=== PATIENT | female | born 1970 | race Caucasian/White ===

== ENCOUNTER 2017-07-19 16:59 | Inpatient (IN) | payer OTHER ==
[2017-07-19 17:56] VITALS: BMI 23.8
--- NOTE | 2017-07-19 20:31 | HP ---
COWS - Scale Resting Pulse: 1= [place] 81-100 Sweatin= No chills or Flushing Restless Observation: 3= Extraneous Movement Pupil Size: 0= Normal to Room Light Bone or Joint Aches: 1= Mild Discomfort Runny Nose/ Eye Tearin= Constantly Teary/Runny GI Upset > 30mins: 0= None Tremor Observation: 1= Tremor [place], Not Seen Yawning Observation: 1= 1-2x During Session Anxiety or Irritability: 2=Irritable/Anxious Goose Flesh Skin: 0=Smooth Skin COWS Score: 13 Admission ROS S - HPI Chief Complaint: heroin withdrawal symptoms Allergies/Adverse Reactions: Allergies Allergy/AdvReac Type Severity Reaction Status Date / Time Penicillins Allergy Severe Hives Verified 01/30/15 18:23 Sulfa (Sulfonamide Allergy Severe Swelling Verified 01/30/15 18:23 Antibiotics) History of Present Illness: 47 yo female with hx heroin, nicotine and cocaine dependence is here seeking detox. Patient currently smokes 1/3 pack of cigarettes per day. 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 Denies suicidal / homicidal ideation or suicide attempts. Last detox [facility] January 2015. Longest period of sobriety 1 year. Denies hx of seizures, blackout or overdose. Exam Limitations: No Limitations - Ebola screening Have you traveled outside of the country in the last 21 days: No Have you had contact with anyone from an Ebola affected area: No Have you been sick,other than usual withdrawal symptoms: No Do you have a fever: No - Review of Systems Constitutional: Unintentional Wgt. Loss (10 lbs in the past year) EENT: reports: No Symptoms Reported, Nose Congestion, Other (pain in nose and tounge since using cocaine) Respiratory: reports: See HPI, Cough (non-productive x 1 week), Wheezing Cardiac: reports: No Symptoms Reported GI: reports: Poor Fluid Intake : reports: No Symptoms Reported Musculoskeletal: reports: No Symptoms Reported Integumentary: reports: No Symptoms Reported Neuro: reports: No Symptoms reported Endocrine: reports: Increased Thirst, Other (hot flashes) Hematology: reports: No Symptoms Reported Psychiatric: reports: Orientated x3, Anxious Other Systems: Reviewed and Negative Patient History - Patient Medical History Hx Anemia: No Hx Asthma: No Hx Chronic Obstructive Pulmonary Disease (COPD): No Hx Cancer: No Hx Cardiac Disorders: No Hx Congestive Heart Failure: No Hx Hypertension: No Hx Hypercholesterolemia: No Hx Pacemaker: No HX Cerebrovascular Accident: No Hx Seizures: No Hx Dementia: No Hx Diabetes: No Hx Gastrointestinal Disorders: No Hx Liver Disease: No Hx Genitourinary Disorders: No Hx Sexually Transmitted Disorders: No Hx Renal Disease (ESRD): No Hx Thyroid Disease: No Hx Human Immunodeficiency Virus (HIV): No (last tested 5 years ago ) Hx Hepatitis C: No Hx Depression: No Hx Suicide Attempt: No Hx Bipolar Disorder: No Hx Schizophrenia: No - Patient Surgical History Past Surgical History: No Hx Neurologic Surgery: No Hx Cataract Extraction: No Hx Cardiac Surgery: No Hx Lung Surgery: No Hx Breast Surgery: No Hx Breast Biopsy: No Hx Abdominal Surgery: No Hx Appendectomy: No Hx Cholecystectomy: No Hx Genitourinary Surgery: No Hx Section: No Hx Orthopedic Surgery: No Anesthesia Reaction: No - PPD History Previous Implant?: Yes Documented Results: Negative w/o proof PPD to be Administered?: No - Reproductive History Patient is a Female of Child Bearing Age (11 -55 yrs old): No Last Menstrual Period: 07/14/17 Patient : No - Smoking Cessation Smoking history: Current every day smoker Have you smoked in the past 12 months: Yes Aproximately how many cigarettes per day: 10 Cigars Per Day: 0 Hx Chewing Tobacco Use: No Initiated information on smoking cessation: Yes 'Breaking Loose' booklet given: 07/19/17 - Substance & Tx. History Hx Alcohol Use: No Hx Substance Use: Yes Substance Use Type: Cocaine, Heroin Hx Substance Use Treatment: Yes ([facility] 2014) - Substances Abused Heroin Route: Inhalation Frequency: Daily Amount used: 5 bags Age of first use: 45 Date of Last Use: 07/19/17 Cocaine Route: Inhalation Frequency: Daily Amount used: 2 grams Age of first use: 40 Date of Last Use: 07/19/17 Family Disease History - Family Disease History Family Disease History: [place]: Mother ( FROM [place] OF [place]), Other: Grandparent (ETOH DEPENDENT), Father (STOPPED USING HEROIN SEVERAL YRS. AGO) Admission Physical Exam BHS - Vital Signs Vital Signs: Vital Signs - 24 hr 07/19/17 17:48 Temperature 98.2 F Pulse Rate 95 H Respiratory 18 Rate Blood Pressure 150/90 - Physical General Appearance: Yes: Disheveled, Thin, Irritable, Anxious HEENTM: Yes: EOMI, Hearing grossly Normal, Normal ENT Inspection, Normocephalic , Normal Voice, Pharynx Normal, Tm's normal, Other (dry mucous membranes) Respiratory: Yes: Chest Non-Tender, Normal Breath Sounds, No Respiratory Distress, No Accessory Muscle Use, Wheezing Neck: Yes: No masses,lesions,Nodules, Trachea in good position Breast: Yes: Breast Exam Deferred Cardiology: Yes: Regular Rhythm, Regular Rate, S1, S2 Abdominal: Yes: Normal Bowel Sounds, Non Tender, Flat, Soft Genitourinary: Yes: Within Normal Limits Back: Yes: Normal Inspection Musculoskeletal: Yes: full range of Motion, Gait Steady, Pelvis Stable Extremities: Yes: Normal Capillary Refill, Normal Inspection, Normal Range of Motion, Non-Tender Neurological: Yes: flexographic press set up operator II-XII NML intact, Fully Oriented, Alert, Motor Strength 5/5, Depressed Affect Integumentary: Yes: Normal Color, Dry, Warm, Other (poor skin turgor) Lymphatic: Yes: Within Normal Limits - Diagnostic (1) Opioid dependence with withdrawal Current Visit: Yes Status: Acute (2) Weight loss Current Visit: Yes Status: Acute (3) Depressed affect Current Visit: Yes Status: Acute (4) Dehydration Current Visit: Yes Status: Acute (5) Wheezing Current Visit: Yes Status: Acute (6) Cough Current Visit: Yes Status: Acute (7) Cocaine dependence Current Visit: Yes Status: Chronic Qualifiers: Substance use status: uncomplicated Qualified Code(s): F14.20 - Cocaine dependence, uncomplicated Cleared for Admission [facility] - Detox or Rehab [facility] Level of Care: Medically Managed Detox Regimen/Protocol: Methadone [facility] Breath Alcohol Content Breath Alcohol Content: 0 Urine Pregancy Test - Result Urine Test Results: Negative- NO Line Present Urine Drug Screen - Results Drug Screen Negative: No Urine Drug Screen Results: ISMAEL-Cocaine, OPI-Opiates
[2017-07-19] MEDS ORDERED: MAGNESIUM HYDROX 2400MG/30ML ORAL SUSPENSION 30 ML CUP PO PRN (20:38)
[2017-07-19] MEDS ORDERED: P-EPHED 60MG/TRIPROLIDI 2.5MG TABLET PO PRN (20:38)
[2017-07-19] MEDS ORDERED: guaiFENesin/D-METHORPHAN HB 10 ML UNIT-DOSE CUPS PO PRN (20:38)
[2017-07-19] MEDS ORDERED: LOPERAMIDE HCL 2 MG CAPSULE PO PRN (20:38)
[2017-07-19] MEDS ORDERED: IBUPROFEN 400 MG TABLET (FP) PO PRN (20:38)
[2017-07-19] MEDS ORDERED: MAG HYDROX/AL HYDROX/SIMETH 30 ML UNIT-DOSE CUP PO PRN (20:38)
[2017-07-19] MEDS ORDERED: MENTHOL/PHENOL 1 EACH UD MM PRN (20:38)
[2017-07-19] MEDS ORDERED: MAGNESIUM CITRATE 300 ML BOTTLE PO PRN (20:38)
[2017-07-19] MEDS ORDERED: ACETAMINOPHEN 325 MG TABLET (FP) PO PRN (20:38)
[2017-07-19] MEDS ORDERED: ALBUTEROL SO4 2.5/IPRATROPIUM 0.5 INH SOL 3 ML VIAL.NEB. NEB PRN (20:43)
[2017-07-19] MEDS ORDERED: METHADONE HCL 10 MG TABLET (FOR DETOX USE ONLY) PO ONE ×2 (22:00→23:00)
[2017-07-19] MEDS: diazePAM 5 MG TABLET PO PRN (23:06)
[2017-07-19] MEDS: THIAMINE HCL 100 MG TABLET (FP) PO SCH (23:09)
--- NOTE | 2017-07-20 09:29 | PN ---
[facility]HS COWS - Scale Resting Pulse: 1= [place] 81-100 Sweatin= Chills/Flushing Restless Observation: 3= Extraneous Movement Pupil Size: 1= Pupils >than Normal Bone or Joint Aches: 2= Severe Diffuse Aches Runny Nose/ Eye Tearin= Runny Nose/Eyes GI Upset > 30mins: 3= Vomiting/Diarrhea Tremor Observation of Outstretched Hands: 2= Slight Tremor Visible Yawning Observation: 1= 1-2x During Session Anxiety or Irritability: 2=Irritable/Anxious Goose Flesh Skin: 0=Smooth Skin COWS Score: 18 BHS Progress Note (SOAP) Subjective: ALERT,IRRITABLE,ANXIOUS,INTERRUPTED SLEEP,TREMOR,PAIN IN THE BODY AND BACK Objective: 07/20/17 09:25 Vital Signs Temperature 98.2 F 07/20/17 06:00 Pulse Rate 85 07/20/17 06:00 Respiratory Rate 18 07/20/17 06:30 Blood Pressure 129/79 07/20/17 06:00 O2 Sat by Pulse Oximetry (%) EKG NSR 97/MIN NO CHEST PAIN,NO SOB,NO DIZZINESS LABS PENDING Assessment: 07/20/17 09:28 WITHDRAWAL SYMPTOM Plan: CONTINUE CONTINUE DETOX
[2017-07-20] MEDS ORDERED: METHADONE HCL 10 MG TABLET (FOR DETOX USE ONLY) PO ONE (10:00)
[2017-07-20 10:15] LABS: HEMATOCRIT 40.1 % (32.4-45.2); HEMOGLOBIN 13.3 GM/dL (10.7-15.3); MCHC 33.1 g/dl (32.0-36.0); MEAN CELL VOLUME 87.6 fl (80-96); MEAN PLT VOLUME 8.7 fl (7.5-11.1); PLATELET COUNT 290 K/MM3 (134-434); RBC 4.57 M/mm3 (3.60-5.2); RDW 14.8 % (11.6-15.6); WHITE BLOOD COUNT 6.4 K/mm3 (4.0-10.0)
[2017-07-20 10:27] LABS: CHLORIDE 108 mmol/L (98-107); POTASSIUM 4.4 mmol/L (3.5-5.1); SODIUM 143 mmol/L (136-145)
[2017-07-20 10:36] LABS: ALBUMIN 3.1 g/dl (3.4-5.0); ALK PHOS 67 U/L (45-117); ANION GAP 8 (8-16); BILIRUBIN,TOTAL 0.3 mg/dL (0.2-1.0); BLOOD UREA NITROGEN 9 mg/dL (7-18); CALCIUM 8.1 mg/dL (8.5-10.1); CO2 27 mmol/L (21-32); CREATININE 0.7 mg/dL (0.55-1.02); GLUCOSE,RANDOM 77 mg/dL (74-106); SGOT/AST 10 U/L (15-37); SGPT/ALT 10 U/L (12-78); TOT PROT 6.3 g/dl (6.4-8.2)
--- NOTE | 2017-07-20 11:02 | CONSULT ---
[facility] Psychiatric Consult - Data Date of interview: 07/20/17 Admission source: [facility] Identifying data: This isn 47 years old single female, homeless, unemployed, with no history of psychiatric hospitalizations, looking for detoxification from Opioids, Cocaine and Nicotine. This is second [facility] admission, with last detox [facility] January 2015. Longest period of sobriety 1 year. Substance Abuse History: Smoking Cessation. Smoking history: Current every day smoker. Patient currently smokes 1/3 pack of cigarettes per day. 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 Cigars Per Day: 0. Hx Chewing Tobacco Use: No. Initiated information on smoking cessation: Yes. ' Breaking Loose' booklet given: 07/19/17. - Substance & Tx. History. Hx Alcohol Use: No. Hx Substance Use: Yes. Substance Use Type: Cocaine, Heroin. Hx Substance Use Treatment: Yes ([facility] 2014). - Substances Abused. Heroin. Route: Inhalation. Frequency: Daily. Amount used: 5 bags. Age of first use: 45. Date of Last Use: 07/19/17. Cocaine. Route: Inhalation. Frequency: Daily. Amount used: 2 grams. Age of first use: 40. Date of Last Use: 07/19/17 Medical History: Weight loss history Psychiatric History: Patient reports history of depression and anxiety, reports no psychiatric hospitalization history, no psychiatric medications taking prior to admission Physical/Sexual Abuse/Trauma History: Denies, unclear Additional Comment: Observation. Detox Unit Care Protocol Mental Status Exam - Mental Status Exam Alert and Oriented to: Person Cognitive Function: Fair Patient Appearance: Unkempt Mood: Sad Affect: Flat Patient Behavior: Sedated Speech Pattern: Delayed Voice Loudness: Moderately Soft/Quiet Thought Process: Circumstantial Thought Disorder: Being Controlled Hallucinations: Denies Suicidal Ideation: Denies Homicidal Ideation: Denies Insight/Judgement: Fair Sleep: Difficulty falling asleep Appetite: Weight loss Muscle strength/Tone: Mild Hypotonicity Gait/Station: Shuffling Additional Comments: Observation. Detox Unit Care Protocol Psychiatric Findings - Problem List ([place] 1, 2,3) (1) Nicotine dependence Current Visit: Yes Status: Acute (2) Drug-induced mood disorder Current Visit: Yes Status: Acute (3) Opioid dependence with withdrawal Current Visit: Yes Status: Acute (4) Weight loss Current Visit: Yes Status: Acute (5) Cocaine dependence Current Visit: Yes Status: Chronic Qualifiers: Substance use status: uncomplicated Qualified Code(s): F14.20 - Cocaine dependence, uncomplicated (6) Cannabis dependence Current Visit: No Status: Chronic - Initial Treatment Plan Initial Treatment Plan: Observation. Detox Unit Care Protocol
[2017-07-20] MEDS: PRENATAL VITAMINS W/ FOLIC ACID TABLET (FP) PO SCH (11:08)
[2017-07-20] MEDS: diazePAM 5 MG TABLET PO PRN ×2 (11:08→22:11)
[2017-07-20] MEDS: NICOTINE 14 MG/24 HOURS TOPICAL PATCH TD SCH (11:08)
--- NOTE | 2017-07-20 14:51 | EKG ---
Test Reason : Blood Pressure : / mmHG Vent. Rate : 087 BPM Atrial Rate : 087 BPM P-R Int : 170 ms QRS Dur : 100 ms QT Int : 388 ms P-R-T Axes : 064 003 042 degrees QTc Int : 466 ms NORMAL SINUS RHYTHM POSSIBLE LEFT ATRIAL ENLARGEMENT BORDERLINE ECG NO PREVIOUS ECGS AVAILABLE Confirmed by JOSE D WALKER MD ([id number]) on 07/20/2017 2:51:11 PM Referred By: Confirmed By:JOSE D WALKER MD
[2017-07-20] MEDS: THIAMINE HCL 100 MG TABLET (FP) PO SCH (22:10)
[2017-07-20] MEDS: hydrOXYzine PAMOATE 50 MG CAPSULE (FP) PO PRN (22:11)
[2017-07-21] MEDS: diazePAM 5 MG TABLET PO PRN ×2 (05:50→22:26)
[2017-07-21] MEDS ORDERED: AZITHROMYCIN 250 MG TABLET PO ONE (09:15)
--- NOTE | 2017-07-21 09:17 | PN ---
S COWS - Scale Resting Pulse: 1= [place] 81-100 Sweatin= Chills/Flushing Restless Observation: 3= Extraneous Movement Pupil Size: 1= Pupils >than Normal Bone or Joint Aches: 2= Severe Diffuse Aches Runny Nose/ Eye Tearin= Nasal Congestion GI Upset > 30mins: 2= Nausea/Diarrhea Tremor Observation of Outstretched Hands: 2= Slight Tremor Visible Yawning Observation: 1= 1-2x During Session Anxiety or Irritability: 2=Irritable/Anxious Goose Flesh Skin: 0=Smooth Skin COWS Score: 16 BHS Progress Note (SOAP) Subjective: ALERT,IRRITABLE,ANXIOUS,INTERRUPTED SLEEP,COUGHING WITH YELLOWISH MUCOUS, EXPIRATORY WHEEZING Objective: 07/21/17 09:14 Vital Signs Temperature 97.7 F 07/21/17 06:00 Pulse Rate 88 07/21/17 06:00 Respiratory Rate 18 07/21/17 06:30 Blood Pressure 130/67 07/21/17 06:00 O2 Sat by Pulse Oximetry (%) Laboratory Last Values WBC 6.4 K/mm3 (4.0-10.0) D 07/20/17 08:00 RBC 4.57 M/mm3 (3.60-5.2) 07/20/17 08:00 Hgb 13.3 GM/dL (10.7-15.3) 07/20/17 08:00 Hct 40.1 % (32.4-45.2) 07/20/17 08:00 MCV 87.6 fl (80-96) 07/20/17 08:00 MCH 29.0 pg (25.7-33.7) 07/20/17 08:00 MCHC 33.1 g/dl (32.0-36.0) 07/20/17 08:00 RDW 14.8 % (11.6-15.6) 07/20/17 08:00 Plt Count 290 K/MM3 (134-434) 07/20/17 08:00 MPV 8.7 fl (7.5-11.1) 07/20/17 08:00 Sodium 143 mmol/L (136-145) 07/20/17 08:00 Potassium 4.4 mmol/L (3.5-5.1) 07/20/17 08:00 Chloride 108 mmol/L (98-107) H 07/20/17 08:00 Carbon Dioxide 27 mmol/L (21-32) 07/20/17 08:00 Anion Gap 8 (8-16) 07/20/17 08:00 BUN 9 mg/dL (7-18) 07/20/17 08:00 Creatinine 0.7 mg/dL (0.55-1.02) 07/20/17 08:00 Creat Clearance w eGFR > 60 (>60) 07/20/17 08:00 Random Glucose 77 mg/dL (74-106) 07/20/17 08:00 Calcium 8.1 mg/dL (8.5-10.1) L 07/20/17 08:00 Total Bilirubin 0.3 mg/dL (0.2-1.0) 07/20/17 08:00 AST 10 U/L (15-37) L 07/20/17 08:00 ALT 10 U/L (12-78) L 07/20/17 08:00 Alkaline Phosphatase 67 U/L (45-117) 07/20/17 08:00 Total Protein 6.3 g/dl (6.4-8.2) L 07/20/17 08:00 Albumin 3.1 g/dl (3.4-5.0) L 07/20/17 08:00 RPR Titer Nonreactive (NONREACTIVE) 07/20/17 08:00 Hep C Ab Diagnostic 0.1 s/co ratio (0.0-0.9) 07/20/17 08:00 HIV 1&2 Antibody Screen Negative 07/20/17 08:00 HIV P24 Antigen Negative 07/20/17 08:00 Assessment: 07/21/17 09:15 WITHDRAWAL SYMPTOM ACUTE EXACERBATION OF ASTHMA Plan: CONTINUE DETOX,START ON ZITHROMAX,PREDNISONE TAPER OFF,ALBUTEROL INHALER, ALBUTEROL NEBULIZER
[2017-07-21] MEDS ORDERED: predniSONE 20 MG TABLET (UD) PO ONE (10:00)
[2017-07-21] MEDS ORDERED: METHADONE HCL 5 MG TABLET (FOR DETOX USE ONLY) PO ONE (10:00)
[2017-07-21] MEDS: PRENATAL VITAMINS W/ FOLIC ACID TABLET (FP) PO SCH (10:08)
[2017-07-21] MEDS: NICOTINE 14 MG/24 HOURS TOPICAL PATCH TD SCH (10:09)
[2017-07-21] MEDS: THIAMINE HCL 100 MG TABLET (FP) PO SCH (22:26)
--- NOTE | 2017-07-21 22:41 | PN ---
[facility] Progress Note Note: Patient was found on the floor by school of nursing director Raudel Mercado. Patient reports she was not feeling wells she was feeling shaky and lay herself down on the floor. Patient reports that the only way she can recieve attention is by being on the floor. Patient was assisted off the floor, in no apparent distress, alert and oriented x 3. Continue to monitor
[2017-07-22] MEDS ORDERED: predniSONE 10 MG TABLET (UD) PO ONE (10:00)
[2017-07-22] MEDS ORDERED: METHADONE HCL 5 MG TABLET (FOR DETOX USE ONLY) PO ONE (10:00)
--- NOTE | 2017-07-22 10:33 | PN ---
S Progress Note (SOAP) Subjective: ALERT,IRRITABLE,ANXIOUS,INTERRUPTED SLEEP Objective: 07/22/17 10:33 Vital Signs Temperature 97.2 F L 07/22/17 09:47 Pulse Rate 87 07/22/17 09:47 Respiratory Rate 18 07/22/17 09:47 Blood Pressure 135/90 07/22/17 09:47 O2 Sat by Pulse Oximetry (%) Assessment: 07/22/17 10:33 WITHDRAWAL SYMPTOM Plan: CONTINUE DETOX
[2017-07-22] MEDS ORDERED: ONDANSETRON *ODT* 4 MG TABLET SL PRN (11:22)
--- NOTE | 2017-07-22 11:24 | PN ---
B[facility] Progress Note Note: NAUSEA,VOMITING,TO GIVE ZOFRAN 4 MGS SL Q 6 HRS PRN,CLOSE MONITORING
[2017-07-22] MEDS: PRENATAL VITAMINS W/ FOLIC ACID TABLET (FP) PO SCH (12:07)
[2017-07-22] MEDS: AZITHROMYCIN 250 MG TABLET PO SCH (12:07)
[2017-07-22] MEDS: NICOTINE 14 MG/24 HOURS TOPICAL PATCH TD SCH (13:01)
[2017-07-22] MEDS: THIAMINE HCL 100 MG TABLET (FP) PO SCH (23:06)
[2017-07-23] MEDS: hydrOXYzine PAMOATE 50 MG CAPSULE (FP) PO PRN (00:58)
[2017-07-23] MEDS ORDERED: METHADONE HCL 10 MG TABLET (FOR DETOX USE ONLY) PO ONE (10:00)
[2017-07-23] MEDS ORDERED: predniSONE 20 MG TABLET (UD) PO ONE (10:00)
[2017-07-23] MEDS: NICOTINE 14 MG/24 HOURS TOPICAL PATCH TD SCH (11:10)
[2017-07-23] MEDS: AZITHROMYCIN 250 MG TABLET PO SCH (11:10)
[2017-07-23] MEDS: PRENATAL VITAMINS W/ FOLIC ACID TABLET (FP) PO SCH (11:10)
--- NOTE | 2017-07-23 14:15 | PN ---
S Progress Note (SOAP) Subjective: alert oriented x 3 steady gait tolerates food and fluid well less gi distress no sweat no tremor calm Objective: 07/23/17 14:14 Vital Signs Temperature 98.2 F 07/23/17 14:11 Pulse Rate 102 H 07/23/17 14:11 Respiratory Rate 20 07/23/17 14:11 Blood Pressure 117/76 07/23/17 14:11 O2 Sat by Pulse Oximetry (%) Laboratory Last Values WBC 6.4 K/mm3 (4.0-10.0) D 07/20/17 08:00 RBC 4.57 M/mm3 (3.60-5.2) 07/20/17 08:00 Hgb 13.3 GM/dL (10.7-15.3) 07/20/17 08:00 Hct 40.1 % (32.4-45.2) 07/20/17 08:00 MCV 87.6 fl (80-96) 07/20/17 08:00 MCH 29.0 pg (25.7-33.7) 07/20/17 08:00 MCHC 33.1 g/dl (32.0-36.0) 07/20/17 08:00 RDW 14.8 % (11.6-15.6) 07/20/17 08:00 Plt Count 290 K/MM3 (134-434) 07/20/17 08:00 MPV 8.7 fl (7.5-11.1) 07/20/17 08:00 Sodium 143 mmol/L (136-145) 07/20/17 08:00 Potassium 4.4 mmol/L (3.5-5.1) 07/20/17 08:00 Chloride 108 mmol/L (98-107) H 07/20/17 08:00 Carbon Dioxide 27 mmol/L (21-32) 07/20/17 08:00 Anion Gap 8 (8-16) 07/20/17 08:00 BUN 9 mg/dL (7-18) 07/20/17 08:00 Creatinine 0.7 mg/dL (0.55-1.02) 07/20/17 08:00 Creat Clearance w eGFR > 60 (>60) 07/20/17 08:00 Random Glucose 77 mg/dL (74-106) 07/20/17 08:00 Calcium 8.1 mg/dL (8.5-10.1) L 07/20/17 08:00 Total Bilirubin 0.3 mg/dL (0.2-1.0) 07/20/17 08:00 AST 10 U/L (15-37) L 07/20/17 08:00 ALT 10 U/L (12-78) L 07/20/17 08:00 Alkaline Phosphatase 67 U/L (45-117) 07/20/17 08:00 Total Protein 6.3 g/dl (6.4-8.2) L 07/20/17 08:00 Albumin 3.1 g/dl (3.4-5.0) L 07/20/17 08:00 RPR Titer Nonreactive (NONREACTIVE) 07/20/17 08:00 Hep C Ab Diagnostic 0.1 s/co ratio (0.0-0.9) 07/20/17 08:00 HIV 1&2 Antibody Screen Negative 07/20/17 08:00 HIV P24 Antigen Negative 07/20/17 08:00 lab noted Assessment: 07/23/17 14:15 mild withdrawal sx Plan: medically supervised detox
[2017-07-23] MEDS: THIAMINE HCL 100 MG TABLET (FP) PO SCH (22:08)
[2017-07-24] MEDS ORDERED: METHADONE HCL 5 MG TABLET (FOR DETOX USE ONLY) PO ONE (06:00)
[2017-07-24 06:56] VITALS: BP 121/78; PULSE 67; TEMP 97.7
--- NOTE | 2017-07-24 08:59 | PN ---
S Progress Note (SOAP) Subjective: ALERT,NO COMPLAINT Objective: 07/24/17 08:58 Vital Signs Temperature 97.7 F 07/24/17 06:56 Pulse Rate 67 07/24/17 06:56 Respiratory Rate 19 07/24/17 06:56 Blood Pressure 121/78 07/24/17 06:56 O2 Sat by Pulse Oximetry (%) Assessment: 07/24/17 08:58 DETOX COMPLETED,NO WITHDRAWAL SYMPTOM Plan: DISCHARGE TODAY,FOLLOW UP WITH AFTER CARE PROGRAM ARRANGEMENT
--- NOTE | 2017-07-24 09:03 | DS ---
[facility] Detox Discharge Summary Admission Date: 07/19/17 Discharge Date: 07/24/17 - History Present History: Opioid Dependence, Sedative Dependence Additional Comments: FOLLOW UP WITH AFTER [facility] PROGRAM ARRANGEMENT, Pertinent Past History: ASTHMA WEIGHT LOSS - Physical Exam Results Vital Signs: Vital Signs Temperature 97.7 F 07/24/17 06:56 Pulse Rate 67 07/24/17 06:56 Respiratory Rate 07/24/17 06:56 Blood Pressure 121/78 07/24/17 06:56 O2 Sat by Pulse Oximetry (%) Pertinent Admission Physical Exam Findings: WITHDRAWAL SIGNS AND SYMPTOM - Treatment Hospital Course: Detox Protocol Followed, Detoxed Safely, Responded well, Discharged Condition Good, Rehab Referral Accepted Patient has Accepted a Rehab Referral to: [facility] - Medication Discharge Medications: Ambulatory Orders NK [No Known Home Medication] 01/30/15 - Diagnosis (1) Opioid dependence with withdrawal Current Visit: Yes Status: Acute (2) Weight loss Current Visit: Yes Status: Acute (3) Cocaine dependence Current Visit: Yes Status: Chronic Qualifiers: Substance use status: uncomplicated Qualified Code(s): F14.20 - Cocaine dependence, uncomplicated (4) Asthma Current Visit: Yes Status: Acute (5) Acute bronchitis Current Visit: Yes Status: Acute - AMA Did Patient Leave Against Medical Advice: No
--- NOTE | 2017-07-24 09:07 | PN ---
S Progress Note Note: PATIENT DECLINED TO GO TO REVELATION DUE TO PERSONAL PROBLEM,FOLLOW UP WITH AFTER CARE PROGRAM ARRANGEMENT
[2017-07-24] MEDS: AZITHROMYCIN 250 MG TABLET PO SCH (09:54)
[2017-07-24] MEDS: NICOTINE 14 MG/24 HOURS TOPICAL PATCH TD SCH (09:54)
[2017-07-24] MEDS: PRENATAL VITAMINS W/ FOLIC ACID TABLET (FP) PO SCH (09:54)
[2017-07-24] MEDS ORDERED: predniSONE 10 MG TABLET (UD) PO ONE (10:00)
[2017-07-24 14:16] LABS: URINE APPEARANCE CLEAR; URINE BILIRUBIN NEGATIVE (NEGATIVE); URINE BLOOD NEGATIVE (NEGATIVE); URINE COLOR STRAW; URINE GLUCOSE (UA) NEGATIVE (NEGATIVE); URINE KETONE NEGATIVE (NEGATIVE); URINE LEUK ESTERASE NEGATIVE (NEGATIVE); URINE NITRITE NEGATIVE (NEGATIVE); URINE PROTEIN NEGATIVE (NEGATIVE); URINE UROBILINOGEN NEGATIVE mg/dL (0.2-1.0)
[2017-07-25] MEDS ORDERED: predniSONE 5 MG TABLET (UD) PO ONE (10:00)
== END 2017-07-24 09:11 | disposition home or self-care (01) | DRG 773 ==
LOC: YASAS 16:59 → Y6N 22:11
PROVIDERS: ADMIT Internal Medicine; ATTEND Internal Medicine
PROC: HZ2ZZZZ Detoxification Services for Substance Abuse Treatment (ICD-10-PCS; principal; 2017-07-19)
DX: F11.23 Opioid dependence with withdrawal (principal); F14.20 Cocaine dependence, uncomplicated; F12.20 Cannabis dependence, uncomplicated; F19.24 Other psychoactive substance dependence with psychoactive substance-induced mood disorder; J45.909 Unspecified asthma, uncomplicated; J20.9 Acute bronchitis, unspecified; R45.89 Other symptoms and signs involving emotional state; E86.0 Dehydration; R63.4 Abnormal weight loss; Z68.23 Body mass index [BMI] 23.0-23.9, adult
CPT/HCPCS: 36415; 71046-TC-FY; 80053; 81003; 85027; 86593; 87389; 93005; 93010; Q0162

== ENCOUNTER 2017-11-30 11:32 | Inpatient (IN) | payer OTHER ==
[2017-11-30 11:50] VITALS: BMI 23.3
--- NOTE | 2017-11-30 14:47 | HP ---
COWS - Scale Resting Pulse: 1= [place] 81-100 Sweatin= Chills/Flushing Restless Observation: 1= Difficult to Sit Still Pupil Size: 1= Pupils >than Normal Bone or Joint Aches: 2= Severe Diffuse Aches Runny Nose/ Eye Tearin= Runny Nose/Eyes GI Upset > 30mins: 2= Nausea/Diarrhea Tremor Observation: 2= Slight Tremor Visible Yawning Observation: 2= >3x During Session Anxiety or Irritability: 2=Irritable/Anxious Goose Flesh Skin: 0=Smooth Skin COWS Score: [address] [facility] Chief Complaint: opiate withdrawal sx Allergies/Adverse Reactions: Allergies Allergy/AdvReac Type Severity Reaction Status Date / Time Penicillins Allergy Severe Hives Verified 11/30/17 12:40 Sulfa (Sulfonamide Allergy Severe Swelling Verified 11/30/17 12:40 Antibiotics) History of Present Illness: 47 years old female with long history of opiate cocaine nicotine dependence positive ppd denies medical issue has anxiety and depression is admitted to detox Exam Limitations: No Limitations - Ebola screening Have you traveled outside of the country in the last 21 days: No Have you had contact with anyone from an Ebola affected area: No Have you been sick,other than usual withdrawal symptoms: No Do you have a fever: No - Review of Systems Constitutional: Loss of Appetite, Changes in sleep, Unintentional Wgt. Loss, Unexplained wgt Loss EENT: reports: No Symptoms Reported Respiratory: reports: SOB with Exertion, Productive cough Cardiac: reports: No Symptoms Reported GI: reports: Nausea, Poor Appetite, Poor Fluid Intake, Abdominal cramping : reports: No Symptoms Reported Musculoskeletal: reports: Back Pain, Joint Pain, Muscle Pain, Neck Pain Integumentary: reports: No Symptoms Reported Neuro: reports: Tremors Endocrine: reports: No Symptoms Reported Hematology: reports: No Symptoms Reported Psychiatric: reports: Judgement Intact, Orientated x3, Anxious, Depressed Other Systems: Reviewed and Negative Patient History - Patient Medical History Hx Anemia: No Hx Asthma: Yes Hx Chronic Obstructive Pulmonary Disease (COPD): Yes Hx Cancer: No Hx Cardiac Disorders: No Hx Congestive Heart Failure: No Hx Hypertension: No Hx Hypercholesterolemia: No Hx Pacemaker: No HX Cerebrovascular Accident: No Hx Seizures: No Hx Dementia: No Hx Diabetes: No Hx Gastrointestinal Disorders: No Hx Liver Disease: No Hx Genitourinary Disorders: No Hx Sexually Transmitted Disorders: No Hx Renal Disease (ESRD): No Hx Thyroid Disease: No Hx Human Immunodeficiency Virus (HIV): No (last tested 5 years ago ) Hx Hepatitis C: No Hx Depression: Yes Hx Suicide Attempt: No Hx Bipolar Disorder: No Hx Schizophrenia: No - Patient Surgical History Past Surgical History: No Hx Neurologic Surgery: No Hx Cataract Extraction: No Hx Cardiac Surgery: No Hx Lung Surgery: No Hx Breast Surgery: No Hx Breast Biopsy: No Hx Abdominal Surgery: No Hx Appendectomy: No Hx Cholecystectomy: No Hx Genitourinary Surgery: No Hx Section: No Hx Orthopedic Surgery: No Hx Hysterectomy: No - PPD History Previous Implant?: Yes Documented Results: Positive w/o proof Implanted On Prior R Admission?: No PPD to be Administered?: No - Reproductive History Patient is a Female of Child Bearing Age (11 -55 yrs old): Yes Last Menstrual Period: 10/05/17 Patient : No - Smoking Cessation Smoking history: Current every day smoker Have you smoked in the past 12 months: Yes Aproximately how many cigarettes per day: 20 Cigars Per Day: 0 Hx Chewing Tobacco Use: No Initiated information on smoking cessation: Yes 'Breaking Loose' booklet given: 11/30/17 - Substance & Tx. History Hx Alcohol Use: No Hx Substance Use: Yes Substance Use Type: Cocaine, Heroin Hx Substance Use Treatment: Yes (08/2017 [facility] [address]) - Substances Abused Heroin Route: Inhalation Frequency: Daily Amount used: 5 BAGS Age of first use: 40 Date of Last Use: 11/29/17 Crack Route: Smoking Frequency: Daily Amount used: 1 GRAM Age of first use: 40 Date of Last Use: 11/29/17 Family Disease History - Family Disease History Family Disease History: [place]: Mother ( FROM [place] OF [place]), Other: Grandparent (ETOH DEPENDENT), Father (STOPPED USING HEROIN SEVERAL YRS. AGO) Admission Physical Exam S - Vital Signs Vital Signs: Vital Signs - 24 hr 11/30/17 11:47 Temperature 97.7 F Pulse Rate 99 H Respiratory 16 Rate Blood Pressure 122/88 - Physical General Appearance: Yes: Appropriately Dressed, Mild Distress, Thin, Tremorous, Irritable, Sweating, Anxious HEENTM: Yes: Hearing grossly Normal, Normocephalic, Normal Voice Respiratory: Yes: Chest Non-Tender, No Respiratory Distress, No Accessory Muscle Use, Wheezing, Hyperresonant, Inspiration Neck: Yes: Supple, Trachea in good position Breast: Yes: Breasts Symetrical, No Discharge Cardiology: Yes: Regular Rhythm, S1, S2, Tachycardia Abdominal: Yes: Non Tender, Flat, Soft, Increased Bowel Sounds Genitourinary: Yes: Within Normal Limits Back: Yes: Normal Inspection Musculoskeletal: Yes: full range of Motion, Gait Steady, Back pain, Muscle Pain Extremities: Yes: Normal Inspection, Normal Range of Motion, Non-Tender, Tremors Neurological: Yes: Fully Oriented, Alert, Motor Strength 5/5, Normal Response, Depressed Affect Integumentary: Yes: Warm, Other (multiple skin superficial abrasion from "shaving") Lymphatic: Yes: Within Normal Limits - Diagnostic (1) Asthma Current Visit: Yes Status: Chronic Qualifiers: Asthma severity: mild Asthma persistence: intermittent Asthma complication type: with status asthmaticus Qualified Code(s): J45.22 - Mild intermittent asthma with status asthmaticus (2) Nicotine dependence Current Visit: Yes Status: Acute Qualifiers: Nicotine product type: cigarettes Substance use status: in withdrawal Qualified Code(s): F17.213 - Nicotine dependence, cigarettes, with withdrawal (3) Opioid dependence with withdrawal Current Visit: Yes Status: Acute (4) Weight loss Current Visit: Yes Status: Acute (5) Positive PPD, treated Current Visit: No Status: Resolved (6) Anxiety Current Visit: Yes Status: Suspected Cleared for Admission [facility] - Detox or Rehab [facility] Level of Care: Medically Managed Detox Regimen/Protocol: Methadone [facility] Breath Alcohol Content Breath Alcohol Content: 0 Urine Pregancy Test - Result Urine Test Results: Negative- NO Line Present Urine Drug Screen - Results Drug Screen Negative: No Urine Drug Screen Results: ISMAEL-Cocaine, OPI-Opiates
[2017-11-30] MEDS ORDERED: IBUPROFEN 400 MG TABLET (FP) PO PRN (14:48)
[2017-11-30] MEDS ORDERED: LOPERAMIDE HCL 2 MG CAPSULE PO PRN (14:48)
[2017-11-30] MEDS ORDERED: ACETAMINOPHEN 325 MG TABLET (FP) PO PRN (14:48)
[2017-11-30] MEDS ORDERED: guaiFENesin/D-METHORPHAN HB 10 ML UNIT-DOSE CUPS PO PRN (14:48)
[2017-11-30] MEDS ORDERED: MAG HYDROX/AL HYDROX/SIMETH 30 ML UNIT-DOSE CUP PO PRN (14:48)
[2017-11-30] MEDS ORDERED: MAGNESIUM HYDROX 2400MG/30ML ORAL SUSPENSION 30 ML CUP PO PRN (14:48)
[2017-11-30] MEDS ORDERED: MENTHOL/PHENOL 1 EACH UD MM PRN (14:48)
[2017-11-30] MEDS ORDERED: P-EPHED 60MG/TRIPROLIDI 2.5MG TABLET PO PRN (14:48)
[2017-11-30] MEDS ORDERED: NICOTINE POLACRILEX 4 MG GUM BUC PRN (14:48)
[2017-11-30] MEDS ORDERED: MAGNESIUM CITRATE 300 ML BOTTLE PO PRN (14:48)
[2017-11-30] MEDS ORDERED: METHADONE HCL 10 MG TABLET (FOR DETOX USE ONLY) PO ONE ×2 (15:50→23:00)
--- NOTE | 2017-11-30 15:50 | CONSULT ---
[facility] Psychiatric Consult - Data Date of interview: 11/30/17 Admission source: [facility] Identifying data: This is a 47 years old female, single, unemployed, homeless, with no psychiatric hospitalization history, with long history of opiate, cocaine,. nicotine dependence. Patient reports withdrawal symptoms amd seeking for detox. Substance Abuse History: Smoking history: Current every day smoker. Have you smoked in the past 12 months: Yes. Aproximately how many cigarettes per day: 20. Cigars Per Day: 0. Hx Chewing Tobacco Use: No. Initiated information on smoking cessation: Yes. 'Breaking Loose' booklet given: 11/30/17. - Substance & Tx. History. Hx Alcohol Use: No. Hx Substance Use: Yes. Substance Use Type : Cocaine, Heroin. Hx Substance Use Treatment: Yes (08/2017 [facility]). - Substances Abused. Heroin. Route: Inhalation. Frequency: Daily. Amount used: 5 BAGS. Age of first use: 40. Date of Last Use: 11/29/17. Crack. Route: Smoking. Frequency: Daily. Amount used: 1 GRAM. Age of first use: 40. Date of Last Use: 11/29/17. Family Disease History Medical History: Patient denies medical problems. Asc per computer: Asthma, PPD+ history Psychiatric History: Patient denies past psychiatric issues Physical/Sexual Abuse/Trauma History: Denies Additional Comment: Observation. Detox unti Care Protocol Mental Status Exam - Mental Status Exam Alert and Oriented to: Person Cognitive Function: Fair Patient Appearance: Unkempt Mood: Anxious Affect: Mood Congruent Patient Behavior: Guarded Speech Pattern: Appropriate Voice Loudness: Mildly Loud Thought Process: Goal Oriented Thought Disorder: Being Controlled Hallucinations: Denies Suicidal Ideation: Denies Homicidal Ideation: Denies Insight/Judgement: Fair Sleep: Difficulty falling asleep Appetite: Weight loss Muscle strength/Tone: Normal Gait/Station: Normal Additional Comments: Observation. Detox unti Care Protocol Psychiatric Findings - Problem List ([place] 1, 2,3) (1) Nicotine dependence Current Visit: Yes Status: Acute Qualifiers: Nicotine product type: cigarettes Substance use status: in withdrawal Qualified Code(s): F17.213 - Nicotine dependence, cigarettes, with withdrawal (2) Opioid dependence with withdrawal Current Visit: Yes Status: Acute (3) Weight loss Current Visit: Yes Status: Acute (4) Anxiety Current Visit: Yes Status: Suspected (5) Drug-induced mood disorder Current Visit: No Status: Acute (6) Cannabis dependence Current Visit: No Status: Chronic (7) Cocaine dependence Current Visit: No Status: Chronic Qualifiers: Substance use status: uncomplicated Qualified Code(s): F14.20 - Cocaine dependence, uncomplicated (8) Heroin dependence Current Visit: No Status: Chronic - Initial Treatment Plan Initial Treatment Plan: Observation. Detox unti Care Protocol
[2017-11-30] MEDS: diazePAM 5 MG TABLET PO PRN (17:48)
[2017-11-30] MEDS: NICOTINE 21 MG/24 HOURS TOPICAL PATCH TD SCH (17:48)
[2017-11-30] MEDS: THIAMINE HCL 100 MG TABLET (FP) PO SCH (23:17)
[2017-11-30 23:57] LABS: URINE APPEARANCE SLCLOUDY; URINE BILIRUBIN NEGATIVE (<2.0 mg/dL); URINE COLOR LTYELLOW; URINE GLUCOSE (UA) NEGATIVE (NEGATIVE); URINE KETONE NEGATIVE (NEGATIVE); URINE LEUK ESTERASE NEGATIVE (NEGATIVE); URINE NITRITE NEGATIVE (NEGATIVE); URINE PROTEIN NEGATIVE (NEGATIVE); URINE UROBILINOGEN NEGATIVE mg/dL (0.2-1.0)
[2017-12-01] MEDS ORDERED: METHADONE HCL 10 MG TABLET (FOR DETOX USE ONLY) PO ONE (10:00)
[2017-12-01 10:01] LABS: HEMATOCRIT 40.7 % (32.4-45.2); HEMOGLOBIN 13.9 GM/dL (10.7-15.3); MCH 30.5 pg (25.7-33.7); MCHC 34.1 g/dl (32.0-36.0); MEAN CELL VOLUME 89.5 fl (80-96); MEAN PLT VOLUME 10.3 fl (7.5-11.1); PLATELET COUNT 310 K/MM3 (134-434); RBC 4.55 M/mm3 (3.60-5.2); RDW 14.8 % (11.6-15.6); WHITE BLOOD COUNT 7.3 K/mm3 (4.0-10.0)
[2017-12-01 10:06] LABS: CHLORIDE 103 mmol/L (98-107); POTASSIUM 4.1 mmol/L (3.5-5.1); SODIUM 140 mmol/L (136-145)
[2017-12-01 10:12] LABS: ALBUMIN 3.9 g/dl (3.4-5.0); ALK PHOS 68 U/L (45-117); ANION GAP 8 (8-16); BILIRUBIN,TOTAL 0.3 mg/dL (0.2-1.0); BLOOD UREA NITROGEN 14 mg/dL (7-18); CALCIUM 9.2 mg/dL (8.5-10.1); CO2 29 mmol/L (21-32); CREATININE 0.8 mg/dL (0.55-1.02); GLUCOSE,RANDOM 100 mg/dL (74-106); SGOT/AST 13 U/L (15-37); SGPT/ALT 18 U/L (12-78); TOT PROT 7.4 g/dl (6.4-8.2)
[2017-12-01] MEDS: PRENATAL VITAMINS W/ FOLIC ACID TABLET (FP) PO SCH (10:57)
[2017-12-01] MEDS: NICOTINE 21 MG/24 HOURS TOPICAL PATCH TD SCH (10:57)
[2017-12-01] MEDS: diazePAM 5 MG TABLET PO PRN ×3 (10:57→22:26)
--- NOTE | 2017-12-01 15:05 | PN ---
BHS COWS - Scale Resting Pulse: 0= [place] 80 or Below Sweatin= Chills/Flushing Restless Observation: 1= Difficult to Sit Still Pupil Size: 0= Normal to Room Light Bone or Joint Aches: 0= None Runny Nose/ Eye Tearin= None GI Upset > 30mins: 0= None Tremor Observation of Outstretched Hands: 0= None Yawning Observation: 0= None Anxiety or Irritability: 0= None COWS Score: 2 BHS Progress Note (SOAP) Subjective: says feeling fine on methadone Objective: 12/01/17 15:02 Vital Signs - 24 hr 11/30/17 11/30/17 12/01/17 17:46 22:42 00:30 Temperature 97.9 F 98.2 F Pulse Rate 81 81 Respiratory 18 18 18 Rate Blood Pressure 127/73 112/64 12/01/17 12/01/17 12/01/17 03:30 06:21 06:26 Temperature 97.8 F 97.8 F Pulse Rate 61 61 Respiratory 16 16 16 Rate Blood Pressure 110/52 110/52 12/01/17 12/01/17 09:45 13:59 Temperature 97.7 F 98.1 F Pulse Rate 86 90 Respiratory 18 16 Rate Blood Pressure 132/92 123/82 Laboratory Tests 11/30/17 12/01/17 12/01/17 10:53 06:00 06:00 WBC 7.3 RBC 4.55 Hgb 13.9 Hct 40.7 MCV 89.5 MCH 30.5 MCHC 34.1 RDW 14.8 Plt Count 310 MPV 10.3 D Sodium 140 Potassium 4.1 Chloride 103 Carbon Dioxide 29 Anion Gap 8 BUN 14 Creatinine 0.8 Creat Clearance w eGFR > 60 Random Glucose 100 Calcium 9.2 Total Bilirubin 0.3 AST 13 L ALT 18 Alkaline Phosphatase 68 Total Protein 7.4 Albumin 3.9 Urine Color Ltyellow Urine Appearance Slcloudy Urine pH 7.0 Ur Specific [place] 1.011 Urine Protein Negative Urine Glucose (UA) Negative Urine Ketones Negative Urine Blood Negative Urine Nitrite Negative Urine Bilirubin Negative Urine Urobilinogen Negative Ur Leukocyte Esterase Negative RPR Titer 12/01/17 06:00 WBC RBC Hgb Hct MCV MCH MCHC RDW Plt Count MPV Sodium Potassium Chloride Carbon Dioxide Anion Gap BUN Creatinine Creat Clearance w eGFR Random Glucose Calcium Total Bilirubin AST ALT Alkaline Phosphatase Total Protein Albumin Urine Color Urine Appearance Urine pH Ur Specific [place] Urine Protein Urine Glucose (UA) Urine Ketones Urine Blood Urine Nitrite Urine Bilirubin Urine Urobilinogen Ur Leukocyte Esterase RPR Titer Nonreactive VS normal PE grossly nl. Assessment: 12/01/17 15:04 47 years old female with long history of opiate cocaine nicotine dependence, here for opioid detox Plan: continue detox protocol
[2017-12-01] MEDS: MELATONIN 5 MG TABLETS PO PRN (22:26)
[2017-12-01] MEDS: THIAMINE HCL 100 MG TABLET (FP) PO SCH (22:26)
[2017-12-02] MEDS: diazePAM 5 MG TABLET PO PRN ×4 (05:52→22:03)
[2017-12-02] MEDS ORDERED: METHADONE HCL 5 MG TABLET (FOR DETOX USE ONLY) PO ONE (10:00)
[2017-12-02] MEDS: PRENATAL VITAMINS W/ FOLIC ACID TABLET (FP) PO SCH (10:44)
[2017-12-02] MEDS: NICOTINE 21 MG/24 HOURS TOPICAL PATCH TD SCH (10:45)
[2017-12-02] MEDS ORDERED: ALBUTEROL SO4 8 GM HFA INHALER IH PRN (13:49)
--- NOTE | 2017-12-02 13:49 | PN ---
BHS COWS - Scale Resting Pulse: 1= [place] 81-100 Sweatin= Chills/Flushing Restless Observation: 1= Difficult to Sit Still Pupil Size: 0= Normal to Room Light Bone or Joint Aches: 2= Severe Diffuse Aches Runny Nose/ Eye Tearin= Runny Nose/Eyes GI Upset > 30mins: 2= Nausea/Diarrhea Tremor Observation of Outstretched Hands: 2= Slight Tremor Visible Yawning Observation: 1= 1-2x During Session Anxiety or Irritability: 2=Irritable/Anxious Goose Flesh Skin: 3=Piloerection COWS Score: 17 BHS Progress Note (SOAP) Subjective: Cough, irritability, sleep interruption Objective: 12/02/17 13:47 Vital Signs - 8 hr 12/02/17 12/02/17 06:00 11:33 Temperature 97.7 F 97.9 F Pulse Rate 90 86 Respiratory 16 18 Rate Blood Pressure 139/93 130/74 Laboratory Last Values WBC 7.3 K/mm3 (4.0-10.0) 12/01/17 06:00 RBC 4.55 M/mm3 (3.60-5.2) 12/01/17 06:00 Hgb 13.9 GM/dL (10.7-15.3) 12/01/17 06:00 Hct 40.7 % (32.4-45.2) 12/01/17 06:00 MCV 89.5 fl (80-96) 12/01/17 06:00 MCH 30.5 pg (25.7-33.7) 12/01/17 06:00 MCHC 34.1 g/dl (32.0-36.0) 12/01/17 06:00 RDW 14.8 % (11.6-15.6) 12/01/17 06:00 Plt Count 310 K/MM3 (134-434) 12/01/17 06:00 MPV 10.3 fl (7.5-11.1) D 12/01/17 06:00 Sodium 140 mmol/L (136-145) 12/01/17 06:00 Potassium 4.1 mmol/L (3.5-5.1) 12/01/17 06:00 Chloride 103 mmol/L (98-107) 12/01/17 06:00 Carbon Dioxide 29 mmol/L (21-32) 12/01/17 06:00 Anion Gap 8 (8-16) 12/01/17 06:00 BUN 14 mg/dL (7-18) 12/01/17 06:00 Creatinine 0.8 mg/dL (0.55-1.02) 12/01/17 06:00 Creat Clearance w eGFR > 60 (>60) 12/01/17 06:00 Random Glucose 100 mg/dL (74-106) 12/01/17 06:00 Calcium 9.2 mg/dL (8.5-10.1) 12/01/17 06:00 Total Bilirubin 0.3 mg/dL (0.2-1.0) 12/01/17 06:00 AST 13 U/L (15-37) L 12/01/17 06:00 ALT 18 U/L (12-78) 12/01/17 06:00 Alkaline Phosphatase 68 U/L (45-117) 12/01/17 06:00 Total Protein 7.4 g/dl (6.4-8.2) 12/01/17 06:00 Albumin 3.9 g/dl (3.4-5.0) 12/01/17 06:00 Urine Color Ltyellow 11/30/17 10:53 Urine Appearance Slcloudy 11/30/17 10:53 Urine pH 7.0 (5.0-8.0) 11/30/17 10:53 Ur Specific [place] 1.011 (1.001-1.035) 11/30/17 10:53 Urine Protein Negative (NEGATIVE) 11/30/17 10:53 Urine Glucose (UA) Negative (NEGATIVE) 11/30/17 10:53 Urine Ketones Negative (NEGATIVE) 11/30/17 10:53 Urine Blood Negative (NEGATIVE) 11/30/17 10:53 Urine Nitrite Negative (NEGATIVE) 11/30/17 10:53 Urine Bilirubin Negative (<2.0 mg/dL) 11/30/17 10:53 Urine Urobilinogen Negative mg/dL (0.2-1.0) 11/30/17 10:53 Ur Leukocyte Esterase Negative (NEGATIVE) 11/30/17 10:53 RPR Titer Nonreactive (NONREACTIVE) 12/01/17 06:00 Labs noted Lungs clear, mild dyspnea on exertion Assessment: 12/02/17 13:47 Withdrawal sx Cough, s/p prednisone Plan: Withdrawal sx Start albuterol MDI
[2017-12-02] MEDS: MELATONIN 5 MG TABLETS PO PRN (22:03)
[2017-12-02] MEDS: THIAMINE HCL 100 MG TABLET (FP) PO SCH (22:03)
[2017-12-03] MEDS: diazePAM 5 MG TABLET PO PRN ×2 (08:34→12:55)
[2017-12-03] MEDS ORDERED: METHADONE HCL 5 MG TABLET (FOR DETOX USE ONLY) PO ONE (10:00)
[2017-12-03] MEDS: NICOTINE 21 MG/24 HOURS TOPICAL PATCH TD SCH (10:24)
[2017-12-03] MEDS: PRENATAL VITAMINS W/ FOLIC ACID TABLET (FP) PO SCH (10:24)
--- NOTE | 2017-12-03 12:28 | PN ---
BHS Progress Note (SOAP) Subjective: body aches anxiety restlessness sweat tremor irritable Objective: 12/03/17 12:27 Vital Signs Temperature 97.0 F L 12/03/17 06:00 Pulse Rate 79 12/03/17 06:00 Respiratory Rate 18 12/03/17 06:00 Blood Pressure 130/84 12/03/17 06:00 O2 Sat by Pulse Oximetry (%) Laboratory Last Values WBC 7.3 K/mm3 (4.0-10.0) 12/01/17 06:00 RBC 4.55 M/mm3 (3.60-5.2) 12/01/17 06:00 Hgb 13.9 GM/dL (10.7-15.3) 12/01/17 06:00 Hct 40.7 % (32.4-45.2) 12/01/17 06:00 MCV 89.5 fl (80-96) 12/01/17 06:00 MCH 30.5 pg (25.7-33.7) 12/01/17 06:00 MCHC 34.1 g/dl (32.0-36.0) 12/01/17 06:00 RDW 14.8 % (11.6-15.6) 12/01/17 06:00 Plt Count 310 K/MM3 (134-434) 12/01/17 06:00 MPV 10.3 fl (7.5-11.1) D 12/01/17 06:00 Sodium 140 mmol/L (136-145) 12/01/17 06:00 Potassium 4.1 mmol/L (3.5-5.1) 12/01/17 06:00 Chloride 103 mmol/L (98-107) 12/01/17 06:00 Carbon Dioxide 29 mmol/L (21-32) 12/01/17 06:00 Anion Gap 8 (8-16) 12/01/17 06:00 BUN 14 mg/dL (7-18) 12/01/17 06:00 Creatinine 0.8 mg/dL (0.55-1.02) 12/01/17 06:00 Creat Clearance w eGFR > 60 (>60) 12/01/17 06:00 Random Glucose 100 mg/dL (74-106) 12/01/17 06:00 Calcium 9.2 mg/dL (8.5-10.1) 12/01/17 06:00 Total Bilirubin 0.3 mg/dL (0.2-1.0) 12/01/17 06:00 AST 13 U/L (15-37) L 12/01/17 06:00 ALT 18 U/L (12-78) 12/01/17 06:00 Alkaline Phosphatase 68 U/L (45-117) 12/01/17 06:00 Total Protein 7.4 g/dl (6.4-8.2) 12/01/17 06:00 Albumin 3.9 g/dl (3.4-5.0) 12/01/17 06:00 Urine Color Ltyellow 11/30/17 10:53 Urine Appearance Slcloudy 11/30/17 10:53 Urine pH 7.0 (5.0-8.0) 11/30/17 10:53 Ur Specific [place] 1.011 (1.001-1.035) 11/30/17 10:53 Urine Protein Negative (NEGATIVE) 11/30/17 10:53 Urine Glucose (UA) Negative (NEGATIVE) 11/30/17 10:53 Urine Ketones Negative (NEGATIVE) 11/30/17 10:53 Urine Blood Negative (NEGATIVE) 11/30/17 10:53 Urine Nitrite Negative (NEGATIVE) 11/30/17 10:53 Urine Bilirubin Negative (<2.0 mg/dL) 11/30/17 10:53 Urine Urobilinogen Negative mg/dL (0.2-1.0) 11/30/17 10:53 Ur Leukocyte Esterase Negative (NEGATIVE) 11/30/17 10:53 RPR Titer Nonreactive (NONREACTIVE) 12/01/17 06:00 lab noted Assessment: 12/03/17 12:28 withdrawal sx Plan: continue detox
[2017-12-03] MEDS: THIAMINE HCL 100 MG TABLET (FP) PO SCH (22:23)
[2017-12-03] MEDS: MELATONIN 5 MG TABLETS PO PRN (22:23)
[2017-12-04] MEDS ORDERED: METHADONE HCL 10 MG TABLET (FOR DETOX USE ONLY) PO ONE (10:00)
[2017-12-04] MEDS: PRENATAL VITAMINS W/ FOLIC ACID TABLET (FP) PO SCH (10:26)
[2017-12-04] MEDS: NICOTINE 21 MG/24 HOURS TOPICAL PATCH TD SCH (10:27)
--- NOTE | 2017-12-04 10:45 | PN ---
S Progress Note (SOAP) Subjective: no tremor no body aches no gi distress feeling better social with peers in day room Objective: 12/04/17 10:44 Vital Signs Temperature 97.5 F L 12/04/17 09:57 Pulse Rate 95 H 12/04/17 09:57 Respiratory Rate 16 12/04/17 09:57 Blood Pressure 141/76 12/04/17 09:57 O2 Sat by Pulse Oximetry (%) Laboratory Last Values WBC 7.3 K/mm3 (4.0-10.0) 12/01/17 06:00 RBC 4.55 M/mm3 (3.60-5.2) 12/01/17 06:00 Hgb 13.9 GM/dL (10.7-15.3) 12/01/17 06:00 Hct 40.7 % (32.4-45.2) 12/01/17 06:00 MCV 89.5 fl (80-96) 12/01/17 06:00 MCH 30.5 pg (25.7-33.7) 12/01/17 06:00 MCHC 34.1 g/dl (32.0-36.0) 12/01/17 06:00 RDW 14.8 % (11.6-15.6) 12/01/17 06:00 Plt Count 310 K/MM3 (134-434) 12/01/17 06:00 MPV 10.3 fl (7.5-11.1) D 12/01/17 06:00 Sodium 140 mmol/L (136-145) 12/01/17 06:00 Potassium 4.1 mmol/L (3.5-5.1) 12/01/17 06:00 Chloride 103 mmol/L (98-107) 12/01/17 06:00 Carbon Dioxide 29 mmol/L (21-32) 12/01/17 06:00 Anion Gap 8 (8-16) 12/01/17 06:00 BUN 14 mg/dL (7-18) 12/01/17 06:00 Creatinine 0.8 mg/dL (0.55-1.02) 12/01/17 06:00 Creat Clearance w eGFR > 60 (>60) 12/01/17 06:00 Random Glucose 100 mg/dL (74-106) 12/01/17 06:00 Calcium 9.2 mg/dL (8.5-10.1) 12/01/17 06:00 Total Bilirubin 0.3 mg/dL (0.2-1.0) 12/01/17 06:00 AST 13 U/L (15-37) L 12/01/17 06:00 ALT 18 U/L (12-78) 12/01/17 06:00 Alkaline Phosphatase 68 U/L (45-117) 12/01/17 06:00 Total Protein 7.4 g/dl (6.4-8.2) 12/01/17 06:00 Albumin 3.9 g/dl (3.4-5.0) 12/01/17 06:00 Urine Color Ltyellow 11/30/17 10:53 Urine Appearance Slcloudy 11/30/17 10:53 Urine pH 7.0 (5.0-8.0) 11/30/17 10:53 Ur Specific [place] 1.011 (1.001-1.035) 11/30/17 10:53 Urine Protein Negative (NEGATIVE) 11/30/17 10:53 Urine Glucose (UA) Negative (NEGATIVE) 11/30/17 10:53 Urine Ketones Negative (NEGATIVE) 11/30/17 10:53 Urine Blood Negative (NEGATIVE) 11/30/17 10:53 Urine Nitrite Negative (NEGATIVE) 11/30/17 10:53 Urine Bilirubin Negative (<2.0 mg/dL) 11/30/17 10:53 Urine Urobilinogen Negative mg/dL (0.2-1.0) 11/30/17 10:53 Ur Leukocyte Esterase Negative (NEGATIVE) 11/30/17 10:53 RPR Titer Nonreactive (NONREACTIVE) 12/01/17 06:00 lab noted Assessment: 12/04/17 10:44 mild withdrawal sx Plan: medically supervised detox
--- NOTE | 2017-12-04 11:12 | EKG ---
Test Reason : Blood Pressure : / mmHG Vent. Rate : 070 BPM Atrial Rate : 070 BPM P-R Int : 166 ms QRS Dur : 094 ms QT Int : 408 ms P-R-T Axes : 070 023 053 degrees QTc Int : 440 ms NORMAL SINUS RHYTHM WITH SINUS ARRHYTHMIA POSSIBLE LEFT ATRIAL ENLARGEMENT BORDERLINE ECG WHEN COMPARED WITH ECG OF 19-JUL-2017 22:16, NO SIGNIFICANT CHANGE WAS FOUND Confirmed by KRISTY PRETTY MD ([id number]) on 12/04/2017 11:11:50 AM Referred By: Confirmed By:KRISTY PRETTY MD
[2017-12-04] MEDS: THIAMINE HCL 100 MG TABLET (FP) PO SCH (21:02)
[2017-12-04] MEDS: MELATONIN 5 MG TABLETS PO PRN (21:02)
[2017-12-05] MEDS ORDERED: METHADONE HCL 5 MG TABLET (FOR DETOX USE ONLY) PO ONE (06:00)
[2017-12-05 08:14] VITALS: BP 121/76; PULSE 68; TEMP 97.3
--- NOTE | 2017-12-05 09:03 | DS ---
[facility] Detox Discharge Summary Admission Date: 11/30/17 Discharge Date: 12/05/17 - History Present History: Opioid Dependence Additional Comments: 47 years old female admitted on 11/30/17 for opiate withdrawal sx completed opiate detox regimen tolerated well denies opiate withdrawal sx alert oriented x 3 no acute distress aftercare [facility] - Physical Exam Results Vital Signs: Vital Signs Temperature 97.3 F L 12/05/17 08:13 Pulse Rate 68 12/05/17 08:13 Respiratory Rate 16 12/05/17 08:13 Blood Pressure 121/76 12/05/17 08:13 O2 Sat by Pulse Oximetry (%) Pertinent Admission Physical Exam Findings: opiate withdrawal sx Vital Signs Temperature 97.3 F L 12/05/17 08:13 Pulse Rate 68 12/05/17 08:13 Respiratory Rate 16 12/05/17 08:13 Blood Pressure 121/76 12/05/17 08:13 O2 Sat by Pulse Oximetry (%) Laboratory Last Values WBC 7.3 K/mm3 (4.0-10.0) 12/01/17 06:00 RBC 4.55 M/mm3 (3.60-5.2) 12/01/17 06:00 Hgb 13.9 GM/dL (10.7-15.3) 12/01/17 06:00 Hct 40.7 % (32.4-45.2) 12/01/17 06:00 MCV 89.5 fl (80-96) 12/01/17 06:00 MCH 30.5 pg (25.7-33.7) 12/01/17 06:00 MCHC 34.1 g/dl (32.0-36.0) 12/01/17 06:00 RDW 14.8 % (11.6-15.6) 12/01/17 06:00 Plt Count 310 K/MM3 (134-434) 12/01/17 06:00 MPV 10.3 fl (7.5-11.1) D 12/01/17 06:00 Sodium 140 mmol/L (136-145) 12/01/17 06:00 Potassium 4.1 mmol/L (3.5-5.1) 12/01/17 06:00 Chloride 103 mmol/L (98-107) 12/01/17 06:00 Carbon Dioxide 29 mmol/L (21-32) 12/01/17 06:00 Anion Gap 8 (8-16) 12/01/17 06:00 BUN 14 mg/dL (7-18) 12/01/17 06:00 Creatinine 0.8 mg/dL (0.55-1.02) 12/01/17 06:00 Creat Clearance w eGFR > 60 (>60) 12/01/17 06:00 Random Glucose 100 mg/dL (74-106) 12/01/17 06:00 Calcium 9.2 mg/dL (8.5-10.1) 12/01/17 06:00 Total Bilirubin 0.3 mg/dL (0.2-1.0) 12/01/17 06:00 AST 13 U/L (15-37) L 12/01/17 06:00 ALT 18 U/L (12-78) 12/01/17 06:00 Alkaline Phosphatase 68 U/L (45-117) 12/01/17 06:00 Total Protein 7.4 g/dl (6.4-8.2) 12/01/17 06:00 Albumin 3.9 g/dl (3.4-5.0) 12/01/17 06:00 Urine Color Ltyellow 11/30/17 10:53 Urine Appearance Slcloudy 11/30/17 10:53 Urine pH 7.0 (5.0-8.0) 11/30/17 10:53 Ur Specific [place] 1.011 (1.001-1.035) 11/30/17 10:53 Urine Protein Negative (NEGATIVE) 11/30/17 10:53 Urine Glucose (UA) Negative (NEGATIVE) 11/30/17 10:53 Urine Ketones Negative (NEGATIVE) 11/30/17 10:53 Urine Blood Negative (NEGATIVE) 11/30/17 10:53 Urine Nitrite Negative (NEGATIVE) 11/30/17 10:53 Urine Bilirubin Negative (<2.0 mg/dL) 11/30/17 10:53 Urine Urobilinogen Negative mg/dL (0.2-1.0) 11/30/17 10:53 Ur Leukocyte Esterase Negative (NEGATIVE) 11/30/17 10:53 RPR Titer Nonreactive (NONREACTIVE) 12/01/17 06:00 lab noted - Treatment Hospital Course: Detox Protocol Followed, Detoxed Safely, Responded well, Discharged Condition Good, Rehab Referral Accepted Patient has Accepted a Rehab Referral [facility]: [facility] - Medication Discharge Medications: Ambulatory Orders NK [No Known Home Medication] 01/30/15 - Diagnosis (1) Asthma Current Visit: Yes Status: Chronic Qualifiers: Asthma severity: mild Asthma persistence: intermittent Asthma complication type: with status asthmaticus Qualified Code(s): J45.22 - Mild intermittent asthma with status asthmaticus (2) Nicotine dependence Current Visit: Yes Status: Acute Qualifiers: Nicotine product type: cigarettes Substance use status: in withdrawal Qualified Code(s): F17.213 - Nicotine dependence, cigarettes, with withdrawal (3) Opioid dependence with withdrawal Current Visit: Yes Status: Acute (4) Weight loss Current Visit: Yes Status: Acute (5) Positive PPD, treated Current Visit: No Status: Resolved (6) Anxiety Current Visit: Yes Status: Suspected - AMA Did Patient Leave Against Medical Advice: No
== END 2017-12-05 09:46 | disposition home or self-care (01) | DRG 773 ==
LOC: YASAS 11:32 → Y6N 15:44
PROVIDERS: ADMIT Surgery; ATTEND Surgery
PROC: HZ2ZZZZ Detoxification Services for Substance Abuse Treatment (ICD-10-PCS; principal; 2017-11-30)
DX: F11.23 Opioid dependence with withdrawal (principal); F14.20 Cocaine dependence, uncomplicated; F17.213 Nicotine dependence, cigarettes, with withdrawal; F41.9 Anxiety disorder, unspecified; J45.22 Mild intermittent asthma with status asthmaticus; R76.11 Nonspecific reaction to tuberculin skin test without active tuberculosis; R05 Cough; R63.4 Abnormal weight loss; Z68.23 Body mass index [BMI] 23.0-23.9, adult; Z88.0 Allergy status to penicillin; Z88.2 Allergy status to sulfonamides; Z88.1 Allergy status to other antibiotic agents
CPT/HCPCS: 36415; 80053; 81003; 85027; 86593; 93005; 93010

== ENCOUNTER 2018-02-05 15:56 | Inpatient (IN) | payer OTHER ==
[2018-02-05 18:23] VITALS: BMI 24.8
[2018-02-05] MEDS ORDERED: ALBUTEROL SO4 2.5/IPRATROPIUM 0.5 INH SOL 3 ML VIAL.NEB. NEB PRN (18:57)
--- NOTE | 2018-02-05 18:57 | HP ---
COWS - Scale Resting Pulse: 0= [place] 80 or Below Sweatin= No chills or Flushing Restless Observation: 1= Difficult to Sit Still Pupil Size: 0= Normal to Room Light Bone or Joint Aches: 1= Mild Discomfort Runny Nose/ Eye Tearin= Runny Nose/Eyes GI Upset > 30mins: 1= Stomach Cramp Tremor Observation: 1= Tremor [place], Not Seen Yawning Observation: 4= Several Times/Minute Anxiety or Irritability: 2=Irritable/Anxious Goose Flesh Skin: 0=Smooth Skin COWS Score: 12 Admission [facility] Chief Complaint: " I was sent by court to be here" opioid withdrawal symptoms Allergies/Adverse Reactions: Allergies Allergy/AdvReac Type Severity Reaction Status Date / Time Penicillins Allergy Severe Hives Verified 02/05/18 19:32 Sulfa (Sulfonamide Allergy Severe Swelling Verified 02/05/18 19:32 Antibiotics) History of Present Illness: 47 yo female with hx of nicotine, heroin (nasal) and crack / cocaine dependence is here seeking detox. Last detox at [facility] January 2018. Reports was in the emergency department two weeks ago for restless legs. Reports she is currently [place] mandated to attend treatment, after convicted for possession of controlled substance 7th degree in 2017. Reports Cough x 2 weeks, seen at urgent care about 02/02/18 and give prednisone carleen. PMHX: b/l restless legs, asthma , insomnia. Denies suicidal ideation or hx of suicide attempt. Denies hx of overdose, seizures or blackouts. Longest period of sobriety 35 days. Exam Limitations: No Limitations - Ebola screening Have you traveled outside of the country in the last 21 days: No (N) Have you had contact with anyone from an Ebola affected area: No Have you been sick,other than usual withdrawal symptoms: No Do you have a fever: No - Review of Systems Constitutional: Changes in sleep EENT: reports: Nose Congestion Respiratory: reports: Cough (two weeks) Cardiac: reports: No Symptoms Reported GI: reports: Poor Fluid Intake, Abdominal cramping : reports: No Symptoms Reported Musculoskeletal: reports: Joint Pain Integumentary: reports: No Symptoms Reported Neuro: reports: No Symptoms reported Endocrine: reports: Increased Thirst Hematology: reports: No Symptoms Reported Psychiatric: reports: Orientated x3, Anxious Other Systems: Reviewed and Negative Patient History - Patient Medical History Hx Anemia: No Hx Asthma: Yes Hx Chronic Obstructive Pulmonary Disease (COPD): Yes Hx Cancer: No Hx Cardiac Disorders: No Hx Congestive Heart Failure: No Hx Hypertension: No Hx Hypercholesterolemia: No Hx Pacemaker: No HX Cerebrovascular Accident: No Hx Seizures: No Hx Dementia: No Hx Diabetes: No Hx Gastrointestinal Disorders: No Hx Liver Disease: No Hx Genitourinary Disorders: No Hx Sexually Transmitted Disorders: No Hx Renal Disease (ESRD): No Hx Thyroid Disease: No Hx Human Immunodeficiency Virus (HIV): No (last tested 5 years ago ) Hx Hepatitis C: No Hx Depression: Yes Hx Suicide Attempt: No Hx Bipolar Disorder: No Hx Schizophrenia: No - Patient Surgical History Past Surgical History: No Hx Neurologic Surgery: No Hx Cataract Extraction: No Hx Cardiac Surgery: No Hx Lung Surgery: No Hx Breast Surgery: No Hx Breast Biopsy: No Hx Abdominal Surgery: No Hx Appendectomy: No Hx Cholecystectomy: No Hx Genitourinary Surgery: No Hx Section: No Hx Orthopedic Surgery: No Hx Hysterectomy: No Anesthesia Reaction: No - PPD History Previous Implant?: No (NEG Chest x-ray 07/2017) Documented Results: Negative w/proof Implanted On Prior [facility] Admission?: No PPD to be Administered?: No - Reproductive History Last Menstrual Period: 10/05/17 Patient : No - Smoking Cessation Smoking history: Current every day smoker Have you smoked in the past 12 months: Yes Aproximately how many cigarettes per day: 20 Cigars Per Day: 0 Hx Chewing Tobacco Use: No Initiated information on smoking cessation: Yes 'Breaking Loose' booklet given: 02/05/18 - Substance & Tx. History Hx Alcohol Use: No Hx Substance Use: Yes Substance Use Type: Cocaine, Heroin Hx Sub[facility] - Substances Abused Heroin Route: Inhalation Frequency: Daily Amount used: 12 bags Age of first use: 40 Date of Last Use: 02/05/18 Crack Route: Smoking Frequency: Daily Amount used: 1 gram Age of first use: 40 Date of Last Use: 02/05/18 Family Disease History - Family Disease History Family Disease History: CA: Mother ( FROM [place] OF [place] LUNGS), Other: Grandparent (ETOH DEPENDENT), Father (STOPPED USING HEROIN SEVERAL YRS. AGO) Admission Physical Exam BHS - Vital Signs Vital Signs: Vital Signs - 24 hr 02/05/18 18:22 Temperature 97.8 F Pulse Rate 80 Respiratory 18 Rate Blood Pressure 120/73 - Physical General Appearance: Yes: Disheveled, Mild Distress, Thin, Anxious HEENTM: Yes: EOMI, Hearing grossly Normal, Normal ENT Inspection, Normocephalic , Normal Voice, MISTY, Pharynx Normal, Tm's normal, Rhinorrhea Respiratory: Yes: Chest Non-Tender, No Respiratory Distress, No Accessory Muscle Use, Wheezing Neck: Yes: Within Normal Limits Breast: Yes: Breast Exam Deferred Cardiology: Yes: Regular Rhythm, Regular Rate Abdominal: Yes: Normal Bowel Sounds, Non Tender, Flat, Soft Genitourinary: Yes: Within Normal Limits Back: Yes: Normal Inspection Musculoskeletal: Yes: full range of Motion, Gait Steady, Pelvis Stable Extremities: Yes: Normal Capillary Refill, Normal Inspection, Normal Range of Motion, Non-Tender Neurological: Yes: qc analyst II-XII NML intact, Fully Oriented, Alert, Motor Strength 5/5, Depressed Affect Integumentary: Yes: Normal Color, Warm, Diaphoresis Lymphatic: Yes: Within Normal Limits - Diagnostic (1) Acute bronchitis Current Visit: Yes Status: Acute Qualifiers: Bronchitis organism: unspecified organism Qualified Code(s): J20.9 - Acute bronchitis, unspecified (2) Depressed affect Current Visit: Yes Status: Acute (3) Nicotine dependence Current Visit: Yes Status: Acute Qualifiers: Nicotine product type: cigarettes Substance use status: in withdrawal Qualified Code(s): F17.213 - Nicotine dependence, cigarettes, with withdrawal (4) Opioid dependence with withdrawal Current Visit: Yes Status: Acute (5) Asthma Current Visit: Yes Status: Chronic Qualifiers: Asthma severity: mild Asthma persistence: intermittent Asthma complication type: with status asthmaticus Qualified Code(s): J45.22 - Mild intermittent asthma with status asthmaticus (6) Cocaine dependence Current Visit: Yes Status: Chronic Qualifiers: Substance use status: uncomplicated Qualified Code(s): F14.20 - Cocaine dependence, uncomplicated Cleared for Admission [facility] - Detox or Rehab [facility] Level of Care: Medically Managed Detox Regimen/Protocol: Methadone [facility] Breath Alcohol Content Breath Alcohol Content: 0 Urine Pregancy Test - Result Urine Test Results: Negative- NO Line Present Urine Drug Screen - Results Drug Screen Negative: No Urine Drug Screen Results: THC-Marijuana, ISMAEL-Cocaine, OPI-Opiates, MTD- Methadone, OXY-Oxycodone, FEN-Fentanyl
[2018-02-05] MEDS ORDERED: ALBUTEROL SO4 8 GM HFA INHALER IH PRN (19:14)
[2018-02-05] MEDS ORDERED: LOPERAMIDE HCL 2 MG CAPSULE PO PRN (19:18)
[2018-02-05] MEDS ORDERED: ACETAMINOPHEN 325 MG TABLET (FP) PO PRN (19:18)
[2018-02-05] MEDS ORDERED: NICOTINE POLACRILEX 2 MG GUM BUC PRN (19:18)
[2018-02-05] MEDS ORDERED: IBUPROFEN 400 MG TABLET (FP) PO PRN (19:18)
[2018-02-05] MEDS ORDERED: MENTHOL/PHENOL 1 EACH UD MM PRN (19:18)
[2018-02-05] MEDS ORDERED: MAG HYDROX/AL HYDROX/SIMETH 30 ML UNIT-DOSE CUP PO PRN (19:18)
[2018-02-05] MEDS ORDERED: MAGNESIUM CITRATE 300 ML BOTTLE PO PRN (19:18)
[2018-02-05] MEDS ORDERED: MAGNESIUM HYDROX 2400MG/30ML ORAL SUSPENSION 30 ML CUP PO PRN (19:18)
[2018-02-05] MEDS ORDERED: guaiFENesin/D-METHORPHAN HB 10 ML UNIT-DOSE CUPS PO PRN (19:18)
[2018-02-05] MEDS ORDERED: METHADONE HCL 10 MG TABLET (FOR DETOX USE ONLY) PO ONE ×2 (19:18→23:00)
[2018-02-05] MEDS ORDERED: P-EPHED 60MG/TRIPROLIDI 2.5MG TABLET PO PRN (19:18)
[2018-02-05] MEDS: diazePAM 5 MG TABLET PO PRN (20:30)
[2018-02-05] MEDS ORDERED: MELATONIN 5 MG TABLETS PO PRN (22:00)
[2018-02-05] MEDS: THIAMINE HCL 100 MG TABLET (FP) PO SCH (22:52)
[2018-02-05 23:25] LABS: URINE APPEARANCE CLOUDY; URINE BILIRUBIN NEGATIVE (<2.0 mg/dL); URINE COLOR DKYELLOW; URINE GLUCOSE (UA) NEGATIVE (NEGATIVE); URINE KETONE TRACE (NEGATIVE); URINE LEUK ESTERASE TRACE (NEGATIVE); URINE NITRITE NEGATIVE (NEGATIVE); URINE UROBILINOGEN NEGATIVE mg/dL (0.2-1.0)
[2018-02-05 23:27] LABS: URINE PROTEIN 1+ (NEGATIVE)
[2018-02-05 23:29] LABS: CALCIUM OXALATE CRYSTALS MODERATE /hpf (NONE SEEN); EPI CELLS MANY /HPF (FEW); URINE BACTERIA RARE /hpf (NONE SEEN); URINE HYALINE CAST 4 /lpf; URINE MUCUS MODERATE
[2018-02-06] MEDS ORDERED: METHADONE HCL 10 MG TABLET (FOR DETOX USE ONLY) PO ONE (10:00)
[2018-02-06 10:25] LABS: HEMATOCRIT 39.1 % (32.4-45.2); HEMOGLOBIN 12.5 GM/dL (10.7-15.3); MCH 29.1 pg (25.7-33.7); MEAN CELL VOLUME 91.1 fl (80-96); MEAN PLT VOLUME 9.3 fl (7.5-11.1); PLATELET COUNT 289 K/MM3 (134-434); RBC 4.29 M/mm3 (3.60-5.2); WHITE BLOOD COUNT 7.5 K/mm3 (4.0-10.0)
[2018-02-06] MEDS: diazePAM 5 MG TABLET PO PRN ×2 (10:44→22:30)
[2018-02-06] MEDS: PRENATAL VITAMINS W/ FOLIC ACID TABLET (FP) PO SCH (10:45)
[2018-02-06] MEDS: NICOTINE 21 MG/24 HOURS TOPICAL PATCH TD SCH (10:45)
[2018-02-06 10:51] LABS: ALK PHOS 55 U/L (45-117); ANION GAP 8 MMOL/L (8-16); BILIRUBIN,TOTAL 0.2 mg/dL (0.2-1); BLOOD UREA NITROGEN 19 mg/dL (7-18); CALCIUM 9.1 mg/dL (8.5-10.1); CHLORIDE 107 mmol/L (98-107); CO2 27 mmol/L (21-32); CREATININE 0.7 mg/dL (0.55-1.3); GLUCOSE,RANDOM 98 mg/dL (74-106); POTASSIUM 4.3 mmol/L (3.5-5.1); SGOT/AST 10 U/L (15-37); SGPT/ALT 15 U/L (13-61); SODIUM 142 mmol/L (136-145); TOT PROT 6.2 g/dl (6.4-8.2)
--- NOTE | 2018-02-06 11:07 | EKG ---
Test Reason : Blood Pressure : / mmHG Vent. Rate : 066 BPM Atrial Rate : 066 BPM P-R Int : 176 ms QRS Dur : 102 ms QT Int : 398 ms P-R-T Axes : 067 029 047 degrees QTc Int : 417 ms NORMAL SINUS RHYTHM NORMAL ECG WHEN COMPARED WITH ECG OF 30-NOV-2017 17:24, NO SIGNIFICANT CHANGE WAS FOUND Confirmed by Wally Wilson MD ([id number]) on 02/06/2018 11:06:30 AM Referred By: Confirmed By:Wally Wilson MD
--- NOTE | 2018-02-06 12:10 | PN ---
S COWS - Scale Resting Pulse: 0= [place] 80 or Below Sweatin=Flushed/Facial Moisture Restless Observation: 1= Difficult to Sit Still Pupil Size: 0= Normal to Room Light Bone or Joint Aches: 2= Severe Diffuse Aches Runny Nose/ Eye Tearin= Runny Nose/Eyes GI Upset > 30mins: 1= Stomach Cramp Tremor Observation of Outstretched Hands: 2= Slight Tremor Visible Yawning Observation: 2= >3x During Session Anxiety or Irritability: 2=Irritable/Anxious Goose Flesh Skin: 3=Piloerection COWS Score: 17 BHS Progress Note (SOAP) Subjective: agitation anxiety sweats shakes irritable chills body aches Objective: 02/06/18 12:08 Vital Signs Temperature 98.1 F 02/06/18 09:26 Pulse Rate 79 02/06/18 09:26 Respiratory Rate 16 02/06/18 09:26 Blood Pressure 157/99 02/06/18 09:26 O2 Sat by Pulse Oximetry (%) Laboratory Tests 02/05/18 02/06/18 02/06/18 19:45 07:30 07:30 WBC 7.5 RBC 4.29 Hgb 12.5 Hct 39.1 MCV 91.1 MCH 29.1 MCHC 32.0 RDW 14.0 Plt Count 289 MPV 9.3 Sodium Potassium Chloride Carbon Dioxide Anion Gap BUN Creatinine Creat Clearance w eGFR Random Glucose Calcium Total Bilirubin AST ALT Alkaline Phosphatase Total Protein Albumin Urine Color Dkyellow Urine Appearance Cloudy Urine pH 5.0 D Ur Specific [place] 1.026 Urine Protein 1+ H Urine Glucose (UA) Negative Urine Ketones Trace H Urine Blood Negative Urine Nitrite Negative Urine Bilirubin Negative Urine Urobilinogen Negative Ur Leukocyte Esterase Trace Urine WBC (Auto) 21 Urine RBC (Auto) 5 Ur Epithelial Cells Many Calcium Oxalate Crystal Moderate Urine Bacteria Rare Hyaline Casts 4 Urine Mucus Moderate RPR Titer HIV 1&2 Antibody Screen Negative HIV P24 Antigen Negative 02/06/18 02/06/18 07:30 07:30 WBC RBC Hgb Hct MCV MCH MCHC RDW Plt Count MPV Sodium 142 Potassium 4.3 Chloride 107 Carbon Dioxide 27 Anion Gap 8 BUN 19 H Creatinine 0.7 Creat Clearance w eGFR > 60 Random Glucose 98 Calcium 9.1 Total Bilirubin 0.2 AST 10 L ALT 15 Alkaline Phosphatase 55 Total Protein 6.2 L Albumin 3.0 L Urine Color Urine Appearance Urine pH Ur Specific [place] Urine Protein Urine Glucose (UA) Urine Ketones Urine Blood Urine Nitrite Urine Bilirubin Urine Urobilinogen Ur Leukocyte Esterase Urine WBC (Auto) Urine RBC (Auto) Ur Epithelial Cells Calcium Oxalate Crystal Urine Bacteria Hyaline Casts Urine Mucus RPR Titer Nonreactive HIV 1&2 Antibody Screen HIV P24 Antigen repeat u/a aaox3 ambulating no acute distress Assessment: 02/06/18 12:09 withdrawal sx Plan: continue detox increase fluids
--- NOTE | 2018-02-06 12:19 | CONSULT ---
[facility] Psychiatric Consult - Data Date of interview: 02/06/18 Admission source: [facility] Identifying data: Patient is a 47 year old single female, without children, unemployed (denies receiving financial assistance) and is currently homeless. This is one of multiple admissions for patient. Patient admitted to for opiate dependence. Substance Abuse History: Smoking Cessation. Smoking history: Current every day smoker. Have you smoked in the past 12 months: Yes. Aproximately how many cigarettes per day: 20. Cigars Per Day: 0. Hx Chewing Tobacco Use: No. Initiated information on smoking cessation: Yes. 'Breaking Loose' booklet given : 02/05/18. - Substance & Tx. History. Hx Alcohol Use: No. Hx Substance Use: Yes. Substance Use Type: Cocaine, Heroin. Hx Substance Use Treatment: Yes ( [facility] January 2018). - Substances Abused. Heroin. Route: Inhalation. Frequency: Daily. Amount used: 12 bags. Age of first use: 40. Date of Last Use: 02/05/18. Crack. Route: Smoking. Frequency: Daily. Amount used: 1 gram. Age of first use: 40. Date of Last Use: 02/05/18 Medical History: Asthma Psychiatric History: Patient denies h/o psychiatric hospitalization, outpatient care, and sucide attempt. Physical/Sexual Abuse/Trauma History: denies. Mental Status Exam - Mental Status Exam Alert and Oriented to: Time, Place, Person Cognitive Function: Good Patient Appearance: Well Groomed Mood: Euthymic Affect: Mood Congruent Patient Behavior: Cooperative Speech Pattern: Appropriate Voice Loudness: Normal Thought Process: Intact, Goal Oriented Thought Disorder: Not Present Hallucinations: Denies Suicidal Ideation: Denies Homicidal Ideation: Denies Insight/Judgement: Fair, Poor Sleep: Fair Appetite: Fair Muscle strength/Tone: Normal Gait/Station: Normal Psychiatric Findings - Problem List ([place] 1, 2,3) (1) Opioid dependence with withdrawal Current Visit: Yes Status: Acute (2) Cocaine dependence Current Visit: Yes Status: Chronic Qualifiers: Substance use status: uncomplicated Qualified Code(s): F14.20 - Cocaine dependence, uncomplicated (3) Cannabis dependence Current Visit: Yes Status: Chronic (4) Substance induced mood disorder Current Visit: No Status: Acute - Initial Treatment Plan Initial Treatment Plan: Psychoeducation provided. Detoxification in progress. Patient informed of melatonin 5mg ordered for insomnia.
[2018-02-06] MEDS: PREDNISONE 20 MG PO SCH ×2 (14:39→22:28)
[2018-02-06] MEDS: THIAMINE HCL 100 MG TABLET (FP) PO SCH (22:28)
[2018-02-07] MEDS: diazePAM 5 MG TABLET PO PRN ×3 (05:29→22:32)
[2018-02-07] MEDS: PREDNISONE 20 MG PO SCH ×3 (05:52→22:32)
[2018-02-07] MEDS ORDERED: METHADONE HCL 5 MG TABLET (FOR DETOX USE ONLY) PO ONE (10:00)
[2018-02-07] MEDS: NICOTINE 21 MG/24 HOURS TOPICAL PATCH TD SCH (10:13)
[2018-02-07] MEDS: PRENATAL VITAMINS W/ FOLIC ACID TABLET (FP) PO SCH (10:13)
--- NOTE | 2018-02-07 11:58 | PN ---
BHS COWS - Scale Resting Pulse: 1= [place] 81-100 Sweatin=Flushed/Facial Moisture Restless Observation: 1= Difficult to Sit Still Pupil Size: 0= Normal to Room Light Bone or Joint Aches: 2= Severe Diffuse Aches Runny Nose/ Eye Tearin= Runny Nose/Eyes GI Upset > 30mins: 1= Stomach Cramp Tremor Observation of Outstretched Hands: 2= Slight Tremor Visible Yawning Observation: 2= >3x During Session Anxiety or Irritability: 2=Irritable/Anxious Goose Flesh Skin: 0=Smooth Skin COWS Score: 15 BHS Progress Note (SOAP) Subjective: sweats shakes interrupted sleep body aches anxiety Objective: 02/07/18 11:57 Vital Signs Temperature 98.4 F 02/07/18 09:14 Pulse Rate 81 02/07/18 09:14 Respiratory Rate 16 02/07/18 09:14 Blood Pressure 132/85 02/07/18 09:14 O2 Sat by Pulse Oximetry (%) Laboratory Tests 02/05/18 02/06/18 02/06/18 19:45 07:30 07:30 WBC 7.5 RBC 4.29 Hgb 12.5 Hct 39.1 MCV 91.1 MCH 29.1 MCHC 32.0 RDW 14.0 Plt Count 289 MPV 9.3 Sodium Potassium Chloride Carbon Dioxide Anion Gap BUN Creatinine Creat Clearance w eGFR Random Glucose Calcium Total Bilirubin AST ALT Alkaline Phosphatase Total Protein Albumin Urine Color Dkyellow Urine Appearance Cloudy Urine pH 5.0 D Ur Specific [place] 1.026 Urine Protein 1+ H Urine Glucose (UA) Negative Urine Ketones Trace H Urine Blood Negative Urine Nitrite Negative Urine Bilirubin Negative Urine Urobilinogen Negative Ur Leukocyte Esterase Trace Urine WBC (Auto) 21 Urine RBC (Auto) 5 Ur Epithelial Cells Many Calcium Oxalate Crystal Moderate Urine Bacteria Rare Hyaline Casts 4 Urine Mucus Moderate RPR Titer HIV 1&2 Antibody Screen Negative HIV P24 Antigen Negative 02/06/18 02/06/18 07:30 07:30 WBC RBC Hgb Hct MCV MCH MCHC RDW Plt Count MPV Sodium 142 Potassium 4.3 Chloride 107 Carbon Dioxide 27 Anion Gap 8 BUN 19 H Creatinine 0.7 Creat Clearance w eGFR > 60 Random Glucose 98 Calcium 9.1 Total Bilirubin 0.2 AST 10 L ALT 15 Alkaline Phosphatase 55 Total Protein 6.2 L Albumin 3.0 L Urine Color Urine Appearance Urine pH Ur Specific [place] Urine Protein Urine Glucose (UA) Urine Ketones Urine Blood Urine Nitrite Urine Bilirubin Urine Urobilinogen Ur Leukocyte Esterase Urine WBC (Auto) Urine RBC (Auto) Ur Epithelial Cells Calcium Oxalate Crystal Urine Bacteria Hyaline Casts Urine Mucus RPR Titer Nonreactive HIV 1&2 Antibody Screen HIV P24 Antigen aaox3 ambulating no acute distress Assessment: 02/07/18 11:58 withdrawal sx Plan: continue detox increase fluids
[2018-02-07] MEDS: THIAMINE HCL 100 MG TABLET (FP) PO SCH (22:32)
[2018-02-08] MEDS: diazePAM 5 MG TABLET PO PRN ×2 (04:42→10:02)
[2018-02-08] MEDS: PREDNISONE 20 MG PO SCH (06:33)
[2018-02-08] MEDS ORDERED: ONDANSETRON *ODT* 4 MG TABLET SL ONE (08:24)
--- NOTE | 2018-02-08 08:27 | PN ---
S Progress Note (SOAP) Subjective: 47 years old female admitted on 02/05/18 for opiate withdrawal sx consider self as "heavy smoker" current under nicotine replacement therapy medical history of asthma has chronic cough x 2-3 weeks treated with prednison continue while in detox treatment, regular menstrual cycle "early week of the month" negative test upon admission, around 5 am c/o nausea, denies gi pain denies vomiting blood, recommend save the vomiting substance for assessment patient is alert oriented x 3 lying on bed resting, skin warm and dry, no shortness of breath, cardiac S1S2 RRR, lung clear bilaterally, abdomen soft non tender, bowel sound x 4, had regula BM yesterday, reported ate dinner last night and slept through out the night, received valium adjunct for opiate withdrawal symptoms management , zofrain SL 4 mg x 1 continue monitoring Objective: 02/08/18 11:30 Vital Signs Temperature 98.2 F 02/08/18 10:01 Pulse Rate 143 H 02/08/18 10:01 Respiratory Rate 21 H 02/08/18 10:01 Blood Pressure 147/97 02/08/18 10:01 O2 Sat by Pulse Oximetry (%) Laboratory Last Values WBC 7.5 K/mm3 (4.0-10.0) 02/06/18 07:30 RBC 4.29 M/mm3 (3.60-5.2) 02/06/18 07:30 Hgb 12.5 GM/dL (10.7-15.3) 02/06/18 07:30 Hct 39.1 % (32.4-45.2) 02/06/18 07:30 MCV 91.1 fl (80-96) 02/06/18 07:30 MCH 29.1 pg (25.7-33.7) 02/06/18 07:30 MCHC 32.0 g/dl (32.0-36.0) 02/06/18 07:30 RDW 14.0 % (11.6-15.6) 02/06/18 07:30 Plt Count 289 K/MM3 (134-434) 02/06/18 07:30 MPV 9.3 fl (7.5-11.1) 02/06/18 07:30 Sodium 142 mmol/L (136-145) 02/06/18 07:30 Potassium 4.3 mmol/L (3.5-5.1) 02/06/18 07:30 Chloride 107 mmol/L (98-107) 02/06/18 07:30 Carbon Dioxide 27 mmol/L (21-32) 02/06/18 07:30 Anion Gap 8 MMOL/L (8-16) 02/06/18 07:30 BUN 19 mg/dL (7-18) H 02/06/18 07:30 Creatinine 0.7 mg/dL (0.55-1.3) 02/06/18 07:30 Creat Clearance w eGFR > 60 (>60) 02/06/18 07:30 Random Glucose 98 mg/dL (74-106) 02/06/18 07:30 Calcium 9.1 mg/dL (8.5-10.1) 02/06/18 07:30 Total Bilirubin 0.2 mg/dL (0.2-1) 02/06/18 07:30 AST 10 U/L (15-37) L 02/06/18 07:30 ALT 15 U/L (13-61) 02/06/18 07:30 Alkaline Phosphatase 55 U/L (45-117) 02/06/18 07:30 Total Protein 6.2 g/dl (6.4-8.2) L 02/06/18 07:30 Albumin 3.0 g/dl (3.4-5.0) L 02/06/18 07:30 Urine Color Dkyellow 02/05/18 19:45 Urine Appearance Cloudy 02/05/18 19:45 Urine pH 5.0 (5.0-8.0) D 02/05/18 19:45 Ur Specific [place] 1.026 (1.001-1.035) 02/05/18 19:45 Urine Protein 1+ (NEGATIVE) H 02/05/18 19:45 Urine Glucose (UA) Negative (NEGATIVE) 02/05/18 19:45 Urine Ketones Trace (NEGATIVE) H 02/05/18 19:45 Urine Blood Negative (NEGATIVE) 02/05/18 19:45 Urine Nitrite Negative (NEGATIVE) 02/05/18 19:45 Urine Bilirubin Negative (<2.0 mg/dL) 02/05/18 19:45 Urine Urobilinogen Negative mg/dL (0.2-1.0) 02/05/18 19:45 Ur Leukocyte Esterase Trace (NEGATIVE) 02/05/18 19:45 Urine WBC (Auto) 21 /hpf (3-5) 02/05/18 19:45 Urine RBC (Auto) 5 /hpf (0-3) 02/05/18 19:45 Ur Epithelial Cells Many /HPF (FEW) 02/05/18 19:45 Calcium Oxalate Crystal Moderate /hpf (NONE SEEN) 02/05/18 19:45 Urine Bacteria Rare /hpf (NONE SEEN) 02/05/18 19:45 Hyaline Casts 4 /lpf 02/05/18 19:45 Urine Mucus Moderate 02/05/18 19:45 RPR Titer Nonreactive (NONREACTIVE) 02/06/18 07:30 HIV 1&2 Antibody Screen Negative 02/06/18 07:30 HIV P24 Antigen Negative 02/06/18 07:30 lab noted Assessment: 02/08/18 11:30 patient walks to the nurse station steady gait, wants to leave the detox unit, discuss maintenance supervisor 2nd shift episode of nausea and vomiting, recommend continue observation medically for safety, patient walked away and had conversation with a male patient and returned to the nurses station "the room is flooded, I told you guys a few days ago" received nurse report that the patient tolerated AM medications well and repeating the statement of leaving the unit Plan: patient is alert oriented x 3 no acute distress, patient is organized and coordinated collecting her belonging washing herself and changing clothe denies suicidal denies homocidal ideation no self destructive behavior in respect the patient preference that she wants to return to the [facility] teaching on opiate related medical complications and net work support toward sobriety
[2018-02-08] MEDS ORDERED: METHADONE HCL 5 MG TABLET (FOR DETOX USE ONLY) PO ONE (10:00)
[2018-02-08 10:02] VITALS: BP 147/97; PULSE 143; TEMP 98.2
[2018-02-08] MEDS: PRENATAL VITAMINS W/ FOLIC ACID TABLET (FP) PO SCH (10:02)
[2018-02-08] MEDS: NICOTINE 21 MG/24 HOURS TOPICAL PATCH TD SCH (10:07)
--- NOTE | 2018-02-08 12:01 | DS ---
[facility] Detox Discharge Summary Admission Date: 02/05/18 Discharge Date: 02/08/18 - History Present History: Opioid Dependence Additional Comments: 47 years old female admitted on 02/05/18 for opioid withdrawal sx patient was doing well wants to leave the detox unit today because the room is flooded inspected the room with the nurse no flood noted, encourage the patient return for [facility] patient left the unit with other male patients. - Physical Exam Results Vital Signs: Vital Signs Temperature 98.2 F 02/08/18 10:01 Pulse Rate 143 H 02/08/18 10:01 Respiratory Rate 21 H 02/08/18 10:01 Blood Pressure 147/97 02/08/18 10:01 O2 Sat by Pulse Oximetry (%) Pertinent Admission Physical Exam Findings: opiate withdrawal sx Vital Signs Temperature 98.2 F 02/08/18 10:01 Pulse Rate 143 H 02/08/18 10:01 Respiratory Rate 21 H 02/08/18 10:01 Blood Pressure 147/97 02/08/18 10:01 O2 Sat by Pulse Oximetry (%) Laboratory Last Values WBC 7.5 K/mm3 (4.0-10.0) 02/06/18 07:30 RBC 4.29 M/mm3 (3.60-5.2) 02/06/18 07:30 Hgb 12.5 GM/dL (10.7-15.3) 02/06/18 07:30 Hct 39.1 % (32.4-45.2) 02/06/18 07:30 MCV 91.1 fl (80-96) 02/06/18 07:30 MCH 29.1 pg (25.7-33.7) 02/06/18 07:30 MCHC 32.0 g/dl (32.0-36.0) 02/06/18 07:30 RDW 14.0 % (11.6-15.6) 02/06/18 07:30 Plt Count 289 K/MM3 (134-434) 02/06/18 07:30 MPV 9.3 fl (7.5-11.1) 02/06/18 07:30 Sodium 142 mmol/L (136-145) 02/06/18 07:30 Potassium 4.3 mmol/L (3.5-5.1) 02/06/18 07:30 Chloride 107 mmol/L (98-107) 02/06/18 07:30 Carbon Dioxide 27 mmol/L (21-32) 02/06/18 07:30 Anion Gap 8 MMOL/L (8-16) 02/06/18 07:30 BUN 19 mg/dL (7-18) H 02/06/18 07:30 Creatinine 0.7 mg/dL (0.55-1.3) 02/06/18 07:30 Creat Clearance w eGFR > 60 (>60) 02/06/18 07:30 Random Glucose 98 mg/dL (74-106) 02/06/18 07:30 Calcium 9.1 mg/dL (8.5-10.1) 02/06/18 07:30 Total Bilirubin 0.2 mg/dL (0.2-1) 02/06/18 07:30 AST 10 U/L (15-37) L 02/06/18 07:30 ALT 15 U/L (13-61) 02/06/18 07:30 Alkaline Phosphatase 55 U/L (45-117) 02/06/18 07:30 Total Protein 6.2 g/dl (6.4-8.2) L 02/06/18 07:30 Albumin 3.0 g/dl (3.4-5.0) L 02/06/18 07:30 Urine Color Dkyellow 02/05/18 19:45 Urine Appearance Cloudy 02/05/18 19:45 Urine pH 5.0 (5.0-8.0) D 02/05/18 19:45 Ur Specific [place] 1.026 (1.001-1.035) 02/05/18 19:45 Urine Protein 1+ (NEGATIVE) H 02/05/18 19:45 Urine Glucose (UA) Negative (NEGATIVE) 02/05/18 19:45 Urine Ketones Trace (NEGATIVE) H 02/05/18 19:45 Urine Blood Negative (NEGATIVE) 02/05/18 19:45 Urine Nitrite Negative (NEGATIVE) 02/05/18 19:45 Urine Bilirubin Negative (<2.0 mg/dL) 02/05/18 19:45 Urine Urobilinogen Negative mg/dL (0.2-1.0) 02/05/18 19:45 Ur Leukocyte Esterase Trace (NEGATIVE) 02/05/18 19:45 Urine WBC (Auto) 21 /hpf (3-5) 02/05/18 19:45 Urine RBC (Auto) 5 /hpf (0-3) 02/05/18 19:45 Ur Epithelial Cells Many /HPF (FEW) 02/05/18 19:45 Calcium Oxalate Crystal Moderate /hpf (NONE SEEN) 02/05/18 19:45 Urine Bacteria Rare /hpf (NONE SEEN) 02/05/18 19:45 Hyaline Casts 4 /lpf 02/05/18 19:45 Urine Mucus Moderate 02/05/18 19:45 RPR Titer Nonreactive (NONREACTIVE) 02/06/18 07:30 HIV 1&2 Antibody Screen Negative 02/06/18 07:30 HIV P24 Antigen Negative 02/06/18 07:30 lab noted - Treatment Hospital Course: Detox Protocol Followed, Responded well Patient has Accepted a Rehab Referral to: [facility] - Medication Discharge Medications: Ambulatory Orders Albuterol Sulfate [Proair Hfa] 2 puff IH Q4H PRN 02/05/18 predniSONE [Deltasone -] See Taper PO 02/05/18 - Diagnosis (1) Drug-induced mood disorder Status: Suspected (2) Nicotine dependence Status: Acute Qualifiers: Nicotine product type: cigarettes Substance use status: in withdrawal Qualified Code(s): F17.213 - Nicotine dependence, cigarettes, with withdrawal (3) Opioid dependence with withdrawal Status: Acute (4) Asthma Status: Chronic Qualifiers: Asthma severity: mild Asthma persistence: intermittent Asthma complication type: with status asthmaticus Qualified Code(s): J45.22 - Mild intermittent asthma with status asthmaticus (5) Positive PPD, treated Status: Resolved - AMA Did Patient Leave Against Medical Advice: Yes
[2018-02-09] MEDS ORDERED: METHADONE HCL 10 MG TABLET (FOR DETOX USE ONLY) PO ONE (10:00)
[2018-02-09] MEDS ORDERED: PREDNISONE 20 MG PO SCH (10:00)
[2018-02-10] MEDS ORDERED: METHADONE HCL 5 MG TABLET (FOR DETOX USE ONLY) PO ONE (06:00)
[2018-02-12] MEDS ORDERED: PREDNISONE 20 MG PO SCH (10:00)
[2018-02-15] MEDS ORDERED: PREDNISONE 20 MG PO SCH (10:00)
== END 2018-02-08 10:57 | disposition left against medical advice (07) | DRG 770 ==
LOC: YASAS 15:56 → Y6N 19:30
PROC: HZ2ZZZZ Detoxification Services for Substance Abuse Treatment (ICD-10-PCS; principal; 2018-02-05)
DX: F11.23 Opioid dependence with withdrawal (principal); F14.20 Cocaine dependence, uncomplicated; F12.20 Cannabis dependence, uncomplicated; F17.213 Nicotine dependence, cigarettes, with withdrawal; F19.24 Other psychoactive substance dependence with psychoactive substance-induced mood disorder; J45.22 Mild intermittent asthma with status asthmaticus; J20.9 Acute bronchitis, unspecified; R45.89 Other symptoms and signs involving emotional state; R76.11 Nonspecific reaction to tuberculin skin test without active tuberculosis; Z88.0 Allergy status to penicillin; Z88.2 Allergy status to sulfonamides
CPT/HCPCS: 36415; 80053; 81003; 81015; 85027; 86593; 87389; 93005; 93010; Q0162